=== PATIENT | female | born 1960 | race Caucasian/White ===

== ENCOUNTER → 2017-07-02 | Outpatient (CLI) | payer BC ==
[2014-02-01 16:17] VITALS: BMI 31.8
[~2017-07-02] MED LIST: ACE3 PO; ALB0.5 INH; ALB6.7R INH; AMO500 PO; ASPI-715 PO; ASPI81TA94 PO; ASPRIN PO; AUG875; CARV12.578 PO; CEP250 PO; CHOL500016 PO; CLO30T TOP; CLO75 PO; CLON-392 PO; CLOP75TA PO; CODE118S5 PO; DICL100G39 TOP; FLUC150T40 PO; FURO-45 PO; GAB300 PO; GABA300S PO; HUMALOG SC; HYDR-3078 PO; HYDR-4309 PO; HYDR10TA20 PO; HYDR2TAB4 PO; HYDR50TA35 PO; INSU100C10 SQ; INSU100I SQ; INSU100I18 SQ; INSU100I30 SUBQ; INSU100I34 SQ; INSU100V24 SQ; INSU100V24 SUBQ; INSU100V30 SQ; KETO-58 PO; LANI SC; LANI SQ; LANI SUBQ; LEV500 PO; LISI-349 PO; LISI-362 PO; LISI-374 PO; LISI20TA29 PO; LOR5 PO; MET500 PO; METF-420 PO; METO-222 PO; METO100T20 PO; METO50TA19 PO; METR-1 PO; MORP-181 PO; MORP-46 PO; ONDA4TAB PO; ONDA4TAB9 PO; ONDA8TAB94 PO; OXYC-865 PO; OXYC1TAB54 FT; PER PO; POTT20 PO; PRAS10TA PO; PRAS10TA4 PO; PRAV20TA65 PO; PRAV40TA77 PO; PRE5 PO; PRED-1 PO; PRED20TA6 PO; PROVOCHOL; RANI150C17 PO; ROSU20TA23 PO; SAXA5TAB4 PO; SPIR25TA78 PO; SPIR50TA31 PO; TICA90TA PO; TRA50 PO; TRAM-420 PO; VANC250C PO; [UNRECOGNIZED DRUG - CODE] PO; [UNRECOGNIZED DRUG - CODE] SQ; [UNRECOGNIZED DRUG - CODE] VG
== END ==
LOC: LAB 08:23
PROVIDERS: ATTEND Internal Medicine
DX: E11.9 Type 2 diabetes mellitus without complications (principal); Z79.4 Long term (current) use of insulin; E78.00 Pure hypercholesterolemia, unspecified
CPT/HCPCS: 36415; 82310; 82374; 82435; 82465; 82565; 82947; 83718; 84132; 84295; 84478; 84520

== ENCOUNTER → 2017-07-09 | Outpatient (CLI) | payer BC ==
[2014-02-01 16:17] VITALS: BMI 31.8
== END ==
LOC: LAB 08:01
PROVIDERS: ATTEND Internal Medicine
DX: I10 Essential (primary) hypertension (principal)
CPT/HCPCS: 36415; 82088; 82533; 83970; 84244; 84443

== ENCOUNTER → 2017-07-19 | Outpatient (CLI) | payer BC ==
[2014-02-01 16:17] VITALS: BMI 31.8
== END ==
LOC: LAB 08:20
PROVIDERS: ATTEND Internal Medicine
DX: I51.9 Heart disease, unspecified (principal); I25.10 Atherosclerotic heart disease of native coronary artery without angina pectoris
CPT/HCPCS: 36415; 85027

== ENCOUNTER 2017-07-23 21:29 | Emergency (ER) | payer BC ==
[2014-02-01 16:17] VITALS: Ht 157.5 cm; Wt 72.6 kg
[~2017-07-23] VITALS: Ht 157.5 cm; Wt 72.6 kg
[~2017-07-23 21:29] MED LIST changes: -AMLO-99 PO; -ATOR40TA24 PO; -CARV25TA78 PO; -FURO20TA19 PO; -NITR0.4T3 SL
--- NOTE | 2017-07-23 21:45 | ER Report ---
History and Physical Time Seen By MD: 21:45 Hx. of Stated Complaint: STENTS PLACED WED. 3 TOTAL OF 10. INCREASED PAIN AND NUMB LEFT SHOULDER AND ARM HPI/ROS CHIEF COMPLAINT: chest pain HISTORY OF PRESENT ILLNESS: This is a 57 year old female. She is having chest pain. Has had chest pain since her stents on Wednesday at [facility]. Three stents placed. central left chest pain with radiation to jaw, neck and left arm. Has escalated today. Worsens with exertion. Occasional mild nausea. Feels a little short of breath at times. No cough. No fevers or chills. No abdominal pain. Normal bowel and bladder function. Is taking her Brilinta twice a day and low dose aspirin daily. REVIEW OF SYSTEMS: Constitutional: No weakness. Eyes: No vision changes. ENT: No sore throat. No congestion. Cardiovascular: As above. Respiratory: As above. Gastrointestinal: As above. Genitourinary: No dysuria. No frequency Musculoskeletal: No back pain. Skin: No rashes. Neurological: No numbness. No weakness. Allergies: Coded Allergies: Tetanus Vaccines and Toxoid (Verified Allergy, Severe, ANAPHYLAXIS, 07/23/17 ) barium iodide (Verified Allergy, Intermediate, PROJECTILE VOMITING HIVES, 07/23/17) Home Meds Active Scripts Insulin Lispro (HUMALOG) 100 Unit/Ml Soln, 2-10 UNIT SUBQ SS Y for SLIDING SCALE INSULIN, #2 BOX 4 Refills Prov:ADELITA SANCHEZ MD 04/03/16 Furosemide (FUROSEMIDE) 20 Mg Tablet, 2 TAB PO DAILY, #0 TAB Prov:ADELITA SANCHEZ MD 01/01/16 Reported Medications Furosemide (LASIX) 20 Mg Tablet, 1 TAB PO Q8H, TAB 07/23/17 Nitroglycerin (NITROGLYCERIN) 0.4 Mg Tab.subl, 0.4 MG SL Q5MIN 07/23/17 Amlodipine Besylate (AMLODIPINE BESYLATE) 10 Mg Tablet, 1 TAB PO QDAY, TAB 07/23/17 Carvedilol (CARVEDILOL) 25 Mg Tablet, 25 MG PO BID, #10 TAB 07/23/17 Atorvastatin Calcium (LIPITOR) 40 Mg Tablet, 1 TAB PO QDAY, TAB 07/23/17 Lisinopril (LISINOPRIL) 20 Mg Tablet, 20 MG PO QDAY, TAB 07/23/17 Carvedilol (CARVEDILOL) 25 Mg Tablet, 25 MG PO BID, #10 TAB 07/23/17 Insulin Glargine (LANTUS) 100 Unit/Ml Soln, 44 UNIT SUBQ AM AND PM, ML 06/29/16 Cholecalciferol (Vitamin D3) (VITAMIN D3) 5,000 Unit Capsule, 1 CAP PO DAILY, CAPSULE 12/16/15 Ticagrelor (BRILINTA) 90 Mg Tablet, 1 TAB PO BID 12/11/15 Metformin Hcl (METFORMIN HCL) 1,000 Mg Tablet, 1 TAB PO BID TAKE ONE TABLET BY MOUTH EVERY DAY 01/23/14 Aspirin (ASPIRIN) 81 Mg Tab.chew, 81 MG PO QDAY, TAB.CHEW TAKE 1 TABLET BY MOUTH EVERY DAY 09/27/13 Discontinued Reported Medications Carvedilol (CARVEDILOL) 12.5 Mg Tablet, PO DAILY, #10 TAB 06/29/16 Lisinopril (LISINOPRIL) 40 Mg Tablet, 40 MG PO QDAY, TAB 06/29/16 Spironolactone (SPIRONOLACTONE) 50 Mg Tablet, 1 TAB PO DAILY 12/16/15 Rosuvastatin Calcium (CRESTOR) 20 Mg Tablet, 20 MG PO QDAY 09/27/13 Discontinued Scripts Clonidine Hcl (CATAPRES) 0.1 Mg Tablet, 0.1 MG PO BID Y for HYPERTENSION, #12 TAB Take when blood pressure is greater than 170/95 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 Hypertension, cholesterol, heart failure. Obstructive sleep apnea using sleep apnea with oxygen. Type 2 diabetes. Crohn's disease. Hiatal hernia repair with GERD. Recent stents as noted. Also a surgical history of appendectomy, hysterectomy, thoracic outlet syndrome with first rib removal in the past, tonsillectomy, back surgery. Reviewed Nurses Notes: Yes Hx Smoking: No Smoking Status: Never Smoker Exposure to Second Hand Smoke?: No Hx Substance Use Disorder: No Hx Alcohol Use: No ("none") Constitutional Vital Sign - Last 24 Hours 07/23/17 07/23/17 07/23/17 07/23/17 21:33 21:34 21:44 21:59 Temp 98.5 Pulse 89 82 84 Resp 13 17 21 B/P (MAP) 184/89 (120) 184/89 Pulse Ox 89 94 88 O2 Delivery Room Air 07/23/17 07/23/17 07/23/17 07/23/17 22:00 22:14 22:27 22:29 Pulse 82 82 Resp 18 17 B/P (MAP) 160/85 (110) Pulse Ox 94 94 O2 Flow Rate 3.0 07/23/17 07/23/17 07/23/17 07/23/17 22:30 22:44 22:59 23:00 Pulse 83 78 Resp 23 16 B/P (MAP) 146/82 (103) 154/80 (104) Pulse Ox 93 95 07/23/17 07/23/17 07/23/17 07/23/17 23:14 23:19 23:30 23:49 Pulse 81 80 79 Resp 28 24 15 B/P (MAP) 156/91 (112) Pulse Ox 95 95 96 07/23/17 07/24/17 23:54 00:00 B/P (MAP) 161/94 (116) 169/91 (117) Physical Exam General Appearance: The patient is alert. No acute distress. Eyes: Pupils are equal, round. No pallor, injection or icterus. ENT: Mucous membranes are moist. Normal oral mucosa. Posterior oropharynx is normal. Neck: Supple and non tender. No lymphadenopathy. Respiratory: Breathing easily and unlabored. Lungs are clear to auscultation. Cardiovascular: Regular rate and rhythm. No murmurs, gallops or rubs. Normal capillary refill. No edema. Gastrointestinal: Abdomen is soft and non tender. Nondistended. Normal active bowel sounds. Neurological: Alert and oriented x3. Skin: Warm and dry. DIFFERENTIAL DIAGNOSIS: After history and physical exam, differential diagnosis was considered for chest pain including but not limited to myocardial ischemia, pericarditis pulmonary embolus, chest wall pain, pleural inflammation and pulmonary infectious causes. Medical Decision Making Data Points Result Diagram: 07/23/17215207/23/172152 Laboratory Hematology Test 07/23/17 21:53 Red Blood Count 5.27 M/uL (4.17-5.56) Mean Corpuscular Volume 88.5 fL (80.0-96.0) Mean Corpuscular Hemoglobin 29.9 pg (26.0-33.0) Mean Corpuscular Hemoglobin Concent 33.7 g/dL (32.0-36.0) Red Cell Distribution Width 13.6 % (11.5-14.5) Mean Platelet Volume 10.8 fL (7.2-11.1) Neutrophils (%) (Auto) 56.5 % (39.4-72.5) Lymphocytes (%) (Auto) 32.3 % (17.6-49.6) Monocytes (%) (Auto) 8.0 % (4.1-12.4) Eosinophils (%) (Auto) 2.0 % (0.4-6.7) Basophils (%) (Auto) 1.2 % (0.3-1.4) Nucleated RBC Relative Count (auto) 0.1 /100WBC Neutrophils # (Auto) 4.8 K/uL (2.0-7.4) Lymphocytes # (Auto) 2.7 K/uL (1.3-3.6) Monocytes # (Auto) 0.7 K/uL (0.3-1.0) Eosinophils # (Auto) 0.2 K/uL (0.0-0.5) Basophils # (Auto) 0.1 K/uL (0.0-0.1) Nucleated RBC Absolute Count (auto) 0.00 K/uL D-Dimer Quantitative (PE/DVT) 1.37 ug/ml (0-0.50) Sodium Level 138 mmol/L (137-145) Potassium Level 4.3 mmol/L (3.5-5.0) Chloride Level 100 mmol/L (98-107) Carbon Dioxide Level 25 mmol/L (22-31) Blood Urea Nitrogen 20 mg/dl (7-18) Creatinine 0.80 mg/dl (0.52-1.04) Glomerular Filtration Rate Calc > 60.0 Random Glucose 328 mg/dl (75-110) Calcium Level 8.9 mg/dl (8.4-10.2) Total Bilirubin 0.6 mg/dl (0.2-1.3) Aspartate Amino Transf (AST/SGOT) 31 U/L (0-35) Alanine Aminotransferase (ALT/SGPT) 28 U/L (0-56) Alkaline Phosphatase 98 U/L (0-126) Troponin I 0.264 ng/ml B-Type Natriuretic Peptide 64 pg/ml (0-100) Total Protein 6.8 gm/dl (6.3-8.2) Albumin 3.5 g/dl (3.5-5.0) Chemistry Test 07/23/17 21:53 White Blood Count 8.4 k/uL (4.5-11.0) Red Blood Count 5.27 M/uL (4.17-5.56) Hemoglobin 15.7 g/dL (12.0-16.0) Hematocrit 46.7 % (34.0-47.0) Mean Corpuscular Volume 88.5 fL (80.0-96.0) Mean Corpuscular Hemoglobin 29.9 pg (26.0-33.0) Mean Corpuscular Hemoglobin Concent 33.7 g/dL (32.0-36.0) Red Cell Distribution Width 13.6 % (11.5-14.5) Platelet Count 189 K/uL (150-450) Mean Platelet Volume 10.8 fL (7.2-11.1) Neutrophils (%) (Auto) 56.5 % (39.4-72.5) Lymphocytes (%) (Auto) 32.3 % (17.6-49.6) Monocytes (%) (Auto) 8.0 % (4.1-12.4) Eosinophils (%) (Auto) 2.0 % (0.4-6.7) Basophils (%) (Auto) 1.2 % (0.3-1.4) Nucleated RBC Relative Count (auto) 0.1 /100WBC Neutrophils # (Auto) 4.8 K/uL (2.0-7.4) Lymphocytes # (Auto) 2.7 K/uL (1.3-3.6) Monocytes # (Auto) 0.7 K/uL (0.3-1.0) Eosinophils # (Auto) 0.2 K/uL (0.0-0.5) Basophils # (Auto) 0.1 K/uL (0.0-0.1) Nucleated RBC Absolute Count (auto) 0.00 K/uL D-Dimer Quantitative (PE/DVT) 1.37 ug/ml (0-0.50) Glomerular Filtration Rate Calc > 60.0 Calcium Level 8.9 mg/dl (8.4-10.2) Total Bilirubin 0.6 mg/dl (0.2-1.3) Aspartate Amino Transf (AST/SGOT) 31 U/L (0-35) Alanine Aminotransferase (ALT/SGPT) 28 U/L (0-56) Alkaline Phosphatase 98 U/L (0-126) Troponin I 0.264 ng/ml B-Type Natriuretic Peptide 64 pg/ml (0-100) Total Protein 6.8 gm/dl (6.3-8.2) Albumin 3.5 g/dl (3.5-5.0) Coagulation Test 07/23/17 21:53 D-Dimer Quantitative (PE/DVT) 1.37 ug/ml EKG/Imaging EKG Interpretation 12 lead EKG: Rhythm: normal sinus rhythm, rate 86 Cobb: normal QRS: Q waves in the inferior leads. ST segments: Nonspecific T-wave changes in the lateral and anterior/ septal leads. No ST elevation or depression. Imaging PORTABLE CHEST: Indication: Chest pain. History of cardiac disease. Technique: A single frontal film was obtained. Comparison: 06/29/2016 Skeletal and soft tissue structures: Intact and unchanged. Heart and mediastinum: Stable. Lung hall: Well expanded and clear. No focal opacities. No vascular congestion. Pleural spaces: Unremarkable. Impression: No acute interval change. Report Dictated By: Karan Islas MD at 07/23/2017 10:25 PM ED Course/Re-evaluation Clinical Indication for ER IV: IV Access ED Course After initial evaluation, gave additional aspirin. Suspect unstable angina. Troponin was elevated at 0.264. Mild elevation of D-dimer. Chest x-ray negative. no acute ischemia noted on EKG. Discussed the case with Dr. Pratt at [facility] and will transfer there for further evaluation of unstable angina. Started heparin bolus and drip. Nitro paste applied and morphine given which did help her pain. Decision to Disposition Date: Jul 23, 2017 Decision to Disposition Time: 23:04 Transfer Facility Patient was transferred to [facility] via ambulance. The transfer was non-emergent, and was required because the capabilities of the receiving hospital. Consent for transfer was obtained from the patient. See EMTALA for transfer orders. Depart Departure Latest Vital Signs Vital Signs Date Time Temp Pulse Resp B/P (MAP) Pulse Ox O2 Delivery O2 Flow Rate FiO2 07/24/17 00:00 169/91 (117) 07/23/17 23:49 79 15 96 07/23/17 22:27 3.0 07/23/17 21:34 98.5 Room Air Impression: Primary Impression: Unstable angina Condition: Condition Unchanged Disposition: XFER TO [facility] CARMEN GONSALVES MD Jul 23, 2017 21:45
[2017-07-23] MEDS ORDERED: FURO20TA19 PO (21:49)
[2017-07-23] MEDS ORDERED: AMLO-99 PO (21:49)
[2017-07-23] MEDS ORDERED: ATOR40TA24 PO (21:49)
[2017-07-23] MEDS ORDERED: CARV25TA78 PO (21:49)
[2017-07-23] MEDS ORDERED: NITR0.4T3 SL (21:49)
[2017-07-23] MEDS ORDERED: LISI20TA29 PO (21:49)
[2017-07-23] MEDS ORDERED: ASPIRIN 81 MG CHEW PO ONE (22:00)
--- NOTE | 2017-07-23 22:03 | EKG ---
FACILITY: [facility] [place] PATIENT NAME: DEEJAY KELSEY : [id number] MR: [id number] V: [id number] EXAM DATE: ORDERING PHYSICIAN: CARMEN GONSALVES TECHNOLOGIST: Shabbir Willams Reason : Blood Pressure : / mmHG Vent. Rate : 086 BPM Atrial Rate : 086 BPM P-R Int : 152 ms QRS Dur : 108 ms QT Int : 392 ms P-R-T Axes : 053 028 068 degrees QTc Int : 469 ms Normal sinus rhythm Inferior infarct , age undetermined Abnormal ECG When compared with ECG of 29-JUN-2016 18:07, Inferior infarct is now present Nonspecific T wave abnormality now evident in Lateral leads Confirmed by NICOLETTE KYLE ([id number]) on 07/24/2017 7:45:32 AM Referred By: Confirmed By:NICOLETTE KYLE
[2017-07-23 22:13] LABS: PLATELET COUNT, AUTOMATED 189 K/uL (150-450)
--- NOTE | 2017-07-23 22:31 | RADIOLOGY IMAGING REPORT ---
FACILITY: [facility] PATIENT NAME: Genna Morrell : 1960 MR: [id number] V: [id number] EXAM DATE: ORDERING PHYSICIAN: CARMEN GONSALVES TECHNOLOGIST: Location: [facility] Patient: Genna Morrell : 1960 Visit/Account:[id number] Date of Sevice: 07/23/2017 PORTABLE CHEST: Indication: Chest pain. History of cardiac disease. Technique: A single frontal film was obtained. Comparison: 06/29/2016 Skeletal and soft tissue structures: Intact and unchanged. Heart and mediastinum: Stable. Lung hall: Well expanded and clear. No focal opacities. No vascular congestion. Pleural spaces: Unremarkable. Impression: No acute interval change. Report Dictated By: Karan Islas MD at 07/23/2017 10:25 PM Report E-Signed By: Karan Islas MD at 07/23/2017 10:27 PM WSN:[id number]
[2017-07-23] MEDS ORDERED: ONDANSETRON 4 MG/2 ML VIAL IVP ONE (23:20)
[2017-07-23] MEDS ORDERED: HEPARIN* SOD/D5W 25000 U/500ML 500 ML IV ONE (23:20)
[2017-07-23] MEDS ORDERED: HEPARIN (PORC) 5000 UN/ML VIAL IVP ONE (23:20)
[2017-07-23] MEDS ORDERED: NITROGLYCERIN OINT 1 GM PKT TP ONE (23:20)
[2017-07-23] MEDS ORDERED: MORPHINE 4 MG/ML SDV IVP ONE (23:20)
[2017-07-24] VITALS: BP 169/91
== END 2017-07-24 00:30 | disposition short-term general hospital (02) ==
LOC: ER 21:43
DX: I20.0 Unstable angina (principal); R94.31 Abnormal electrocardiogram [ECG] [EKG]; R06.02 Shortness of breath
CPT/HCPCS: 71045; 83880; 84484; 85025; 85379; 93005; 99285; J1644; J2270; J2405; 82040; 82247; 82310; 82374; 82435; 82565; 82947; 84075; 84132; 84155; 84295; 84450; 84460; 84520

== ENCOUNTER → 2017-07-23 | Outpatient (CLI) | payer BC ==
[2014-02-01 16:17] VITALS: BMI 31.8
[~2017-07-23] MED LIST changes: +AMLO-99 PO; +ATOR40TA24 PO; +CARV25TA78 PO; +FURO20TA19 PO; +NITR0.4T3 SL
== END ==
LOC: AMB 23:57
PROVIDERS: ATTEND Nurse Practitioner
DX: R79.89 Other specified abnormal findings of blood chemistry (principal); E11.9 Type 2 diabetes mellitus without complications; R07.89 Other chest pain; M79.602 Pain in left arm
CPT/HCPCS: A0425; A0426

== ENCOUNTER → 2017-10-07 | Outpatient (REF) | payer BC ==
[2014-02-01 16:17] VITALS: BMI 31.8
[~2017-10-07] MED LIST changes: +AMLO-99 PO; +ATOR40TA24 PO; +CARV25TA78 PO; +FURO20TA19 PO; +NITR0.4T3 SL
[2017-10-07 13:55] LABS: PLATELET COUNT, AUTOMATED 201 K/uL (150-450)
== END ==
PROVIDERS: ATTEND Nurse Practitioner Family
DX: I50.9 Heart failure, unspecified (principal)
CPT/HCPCS: 82040; 82247; 82310; 82374; 82435; 82565; 82947; 83880; 84075; 84132; 84155; 84295; 84450; 84460; 84484; 84520; 85025; 85379

== ENCOUNTER 2017-10-09 11:47 | Emergency (ER) | payer BC ==
[2014-02-01 16:17] VITALS: Wt 75.8 kg
[2017-10-09] MEDS ORDERED: DOXY-181 PO (12:02)
[2017-10-09] MEDS ORDERED: ALB6.7R INH (12:04)
[2017-10-09] MEDS ORDERED: BENZ100C4 PO (12:04)
--- NOTE | 2017-10-09 12:23 | ER Report ---
History and Physical Time Seen By MD: 12:21 Hx. of Stated Complaint: PATIENTS LEFT EYE STATED TO HURT LAST NIGHT; TODAY IT HAS GOTTEN WORSE; PATIENT WENT TO URGENT CARE ON WED. PATIENT STATES THAT SHE WAS DIAGNOSED WITH BRONCHITIS AND PNEUMONIA AND PLACED ON MEDICATIONS HPI/ROS CHIEF COMPLAINT: Left eye pain HISTORY OF PRESENT ILLNESS: 57-year-old female who presents with onset of severe left eye pain last night she reports no eye injury or foreign body sensation. She states that she has blurry vision in the left eye only. She reports increased lacrimation and eye redness of the left eye. Exposure to light increases the pain. She states her eye is tender. She was recently seen urgent care for upper respiratory infection and prescribed doxycycline and Tessalon pearls. REVIEW OF SYSTEMS: Respiratory: +cough, no dyspnea. Cardiovascular: No chest pain, no palpitations. Gastrointestinal: No vomiting, no abdominal pain. Musculoskeletal: No back pain. Allergies: Coded Allergies: Tetanus Vaccines and Toxoid (Verified Allergy, Severe, ANAPHYLAXIS, ) barium iodide (Verified Allergy, Intermediate, PROJECTILE VOMITING HIVES, 10/09/17) Home Meds Active Scripts Prednisone (PREDNISONE) 20 Mg Tablet, 20 MG PO BID for 5 Days, #10 TAB Prov:ANANYA DESIR MD 10/09/17 Insulin Lispro 100 Un/Ml Vial (HUMALOG 100 U/ML VIAL) 100 Unit/Ml Soln, 2-10 UNIT SUBQ SS Y for SLIDING SCALE INSULIN, #2 BOX 4 Refills Prov:ADELITA SANCHEZ MD 04/03/16 Furosemide (FUROSEMIDE) 20 Mg Tablet, 2 TAB PO DAILY, #0 TAB Prov:ADELITA SANCHEZ MD 01/01/16 Reported Medications Benzonatate 100 Mg Cap (TESSALON PERLE 100 MG CAP) 100 Mg Capsule, 100 MG PO TID , #15 CAP 10/09/17 Albuterol Sulfate (PROVENTIL HFA) 6.7 Gm Inh, 1-2 PUFF INH 3-4XD, INH 10/09/17 Doxycycline Hyclate (DOXYCYCLINE HYCLATE) 100 Mg Capsule, 100 MG PO BID, CAPSULE 10/09/17 Furosemide (LASIX) 20 Mg Tablet, 1 TAB PO Q8H, TAB 07/23/17 Nitroglycerin (NITROGLYCERIN) 0.4 Mg Tab.subl, 0.4 MG SL Q5MIN 07/23/17 Amlodipine Besylate (AMLODIPINE BESYLATE) 10 Mg Tablet, 1 TAB PO QDAY, TAB 07/23/17 Carvedilol (CARVEDILOL) 25 Mg Tablet, 25 MG PO BID, #10 TAB 07/23/17 Atorvastatin Calcium (LIPITOR) 40 Mg Tablet, 1 TAB PO QDAY, TAB 07/23/17 Lisinopril (LISINOPRIL) 20 Mg Tablet, 20 MG PO QDAY, TAB 07/23/17 Carvedilol (CARVEDILOL) 25 Mg Tablet, 25 MG PO BID, #10 TAB 07/23/17 Insulin Glargine (LANTUS) 100 Unit/Ml Soln, 44 UNIT SUBQ AM AND PM, ML 06/29/16 Cholecalciferol (Vitamin D3) (VITAMIN D3) 5,000 Unit Capsule, 1 CAP PO DAILY, CAPSULE 12/16/15 Ticagrelor (BRILINTA) 90 Mg Tablet, 1 TAB PO BID 12/11/15 Metformin Hcl (METFORMIN HCL) 1,000 Mg Tablet, 1 TAB PO BID TAKE ONE TABLET BY MOUTH EVERY DAY 01/23/14 Aspirin (ASPIRIN) 81 Mg Tab.chew, 81 MG PO QDAY, TAB.CHEW TAKE 1 TABLET BY MOUTH EVERY DAY 09/27/13 Hx Smoking: No Smoking Status: Never Smoker Exposure to Second Hand Smoke?: No Hx Substance Use Disorder: No Hx Alcohol Use: No ("none") Constitutional Vital Sign - Last 24 Hours 10/09/17 10/09/17 10/09/17 11:51 12:12 14:14 Temp 98.3 98.6 Pulse 86 79 Resp 20 18 B/P (MAP) 158/73 158/101 (120) Pulse Ox 86 96 O2 Delivery Room Air Nasal Cannula O2 Flow Rate 2.0 3 Physical Exam General Appearance: Alert, no distress. Eyes: Pupils equal and round no pallor. Pupils are equal. Right eye is normal. Right eye has severe injection. There is no discharge. Upper lateral eyelid everted, there is no foreign body. Fluorescein exam reveals no uptake. Intraocular pressure of the left eye is 15. Right eye is 12. EOMI intact. Skin: Periorbital skin is not inflamed. DIFFERENTIAL DIAGNOSIS: After history and physical exam differential diagnosis was considered for a red eye including but not limited to foreign body, glaucoma , conjunctivitis, iritis and corneal abrasion. Medical Decision Making ED Course/Re-evaluation ED Course Exam finds no evidence of glaucoma, foreign body, corneal abrasion. Bacterial conjunctivitis appears less likely given no thick discharge or matting. In the setting of what seems to be a viral upper strain infection irritation of the eye a appears more consistent with uveitis or iritis. Patient's pain improved while she was in the ER and she was able to view her cell phone without discomfort. She was prescribed systemic prednisone to help with the irritation as well as her cough. 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 Decision to Disposition Date: Oct 09, 2017 Decision to Disposition Time: 14:03 Depart Departure Latest Vital Signs Vital Signs Date Time Temp Pulse Resp B/P (MAP) Pulse Ox O2 Delivery O2 Flow Rate FiO2 10/09/17 14:14 98.6 79 18 158/101 (120) 96 Nasal Cannula 3 Impression: Primary Impression: Uveitis Condition: Improved Disposition: HOME OR SELF-CARE New Scripts Prednisone (PREDNISONE) 20 Mg Tablet 20 MG PO BID for 5 Days, #10 TAB Prov: ANANYA DESIR MD 10/09/17 Patient Instructions: Eye Pain (ED) Additional Instructions: Take ibuprofen 400-600 milligrams as needed when necessary, do not exceed 2400 mg in a day. Follow-up with your eye doctor on Wednesday. ANANYA DESIR MD Oct 09, 2017 12:23
[2017-10-09] MEDS ORDERED: FLUORESCEIN SOD 1 MG 1 EA STRP OS ONE (12:25)
[2017-10-09] MEDS ORDERED: PROPARACAINE 0.5% OP 15ML BTL OS ONE (12:35)
[2017-10-09] MEDS ORDERED: PRED20TA6 PO (14:05)
[2017-10-09 14:14] VITALS: BP 158/101
== END 2017-10-09 14:14 | disposition home or self-care (01) ==
LOC: ER 12:40
DX: H20.9 Unspecified iridocyclitis (principal)
CPT/HCPCS: 99282

== ENCOUNTER → 2017-10-18 | Outpatient (CLI) | payer BC ==
[2014-02-01 16:17] VITALS: BMI 31.8
[~2017-10-18] MED LIST changes: +BENZ100C4 PO; +DOXY-181 PO
== END ==
LOC: LAB 08:13
PROVIDERS: ATTEND Internal Medicine
DX: E78.00 Pure hypercholesterolemia, unspecified (principal); I25.5 Ischemic cardiomyopathy
CPT/HCPCS: 36415; 82040; 82247; 82310; 82374; 82435; 82465; 82565; 82947; 83718; 84075; 84132; 84155; 84295; 84450; 84460; 84478; 84520

== ENCOUNTER → 2017-11-07 | Outpatient (CLI) | payer BC ==
[2014-02-01 16:17] VITALS: BMI 31.8
[~2017-11-07] MED LIST changes: +METF-421 PO
[2017-11-07 09:14] LABS: PLATELET COUNT, AUTOMATED 168 K/uL (150-450)
[2017-11-07 09:36] LABS: LDL CHOLESTEROL 174 mg/dl
== END ==
LOC: LAB 08:44
PROVIDERS: ATTEND Nurse Practitioner Family
DX: E11.40 Type 2 diabetes mellitus with diabetic neuropathy, unspecified (principal); I10 Essential (primary) hypertension; I25.2 Old myocardial infarction; E78.00 Pure hypercholesterolemia, unspecified; D51.0 Vitamin B12 deficiency anemia due to intrinsic factor deficiency; E55.9 Vitamin D deficiency, unspecified; I50.9 Heart failure, unspecified; R53.81 Other malaise; Z82.49 Family history of ischemic heart disease and other diseases of the circulatory system; Z86.73 Personal history of transient ischemic attack (TIA), and cerebral infarction without residual deficits; Z95.5 Presence of coronary angioplasty implant and graft
CPT/HCPCS: 36415; 82040; 82247; 82306; 82310; 82374; 82435; 82465; 82565; 82607; 82947; 83036; 83718; 84075; 84132; 84155; 84295; 84443; 84450; 84460; 84478; 84520; 85025; 86140

== ENCOUNTER 2018-06-01 09:34 | Outpatient (RCR) | payer BC ==
[2014-02-01 16:17] VITALS: BMI 31.8
[~2018-06-01 09:34] MED LIST changes: +AMLO-127 PO; -AMLO-99 PO; -HYDR-4309 PO; +HYDR-653 PO; -METF-421 PO; +METF-452 PO; +SPIR25TA80 PO; -SPIR50TA31 PO; +SPIR50TA33 PO
--- NOTE | 2018-06-02 14:57 | Medical Nutrition Therapy ---
Nutritional Education Nutrition Education Topic: Diabetic Nutrition Learning Readiness: Interested Teaching Methods: Discussion, Handout, Demonstration Response to Teaching: Verbalize understanding, Reinforcement needed Teaching Recipient: Patient Nutrition Counselin/12: Provided insulin pump training per medtr[employer] protocol. Reviewed basel/bolus and set max rates, basal rate and preset bolus. Pt is not interested in CHO counting at this time. Reviewed what is ISF and how to give correction bolis. Reviewed alarms, what to do when BG high. Synchonized glucometer to pump. Demonstrated filling of reservoir and attached sensor. Pt took BG reading and gave correction dose prior to leaving. Pt left wearing pump and will return for f/u 06/03 @ 10:00 to ensure no issues and make sure pt can demonstrate how to fill reservoir and insert a new sensor. Nutrition Monitoring & Eval Nutritional Comment: Provided 2 hrs diabetic education in insulin pump training and set- up. Copies To Copies to: MANISH AVILA ; NEYMAR BIGGS Jun 02, 2018 14:57
--- NOTE | 2018-06-03 14:15 | Medical Nutrition Therapy ---
Nutritional Education Nutrition Education Topic: Diabetic Nutrition Learning Readiness: Interested Teaching Methods: Discussion, Handout, Demonstration Response to Teaching: Verbalize understanding Teaching Recipient: Patient Nutrition Counselin day f/u: Pt's 2:00 am readings were 143 and 174. Before meals are running 79-101. 2 hr after meals are running 143- 157 with one post meal of 242. Pt stated went out for Prydeinig and ate "a lot" of rice. Pt is on preset bolis for meals based on typical days. discussed improtance of correction bolis when she eats a high CHO meal. Also discussed if she eats a low CHO meal, she may need a smaller dose, at which time, she could do a manual bolis. Pt still had 100u of insulin in reservour. Walked thru the process of filling reservour and changing sensor. Pt will call if she has any issues. Schedulced f/u for 06/07. Nutrition Monitoring & Eval RD Patient Assessment Time: [address] Assessment Type: RD Education Nutritional Comment: Provided 60 min diabetic education in insulin pump training. Copies To Copies to: MANISH AVILA ; NEYMAR BIGGS Jun 03, 2018 14:15
[2018-07-01] MEDS ORDERED: ALB18R INH (10:28)
[2018-07-01] MEDS ORDERED: NOVOLOG SUBQ (10:28)
[2018-07-01] MEDS ORDERED: VALA100059 PO (10:31)
[2018-07-01] MEDS ORDERED: PRED20TA6 PO (10:31)
== END 2018-07-06 ==
LOC: DIET 09:34
PROVIDERS: ATTEND Nurse Practitioner Family
DX: Z46.81 Encounter for fitting and adjustment of insulin pump (principal); E11.9 Type 2 diabetes mellitus without complications

== ENCOUNTER 2018-07-01 08:28 | Emergency (ER) | payer BC ==
[2014-02-01 16:17] VITALS: Wt 75.8 kg
--- NOTE | 2018-07-01 08:32 | ER Report ---
History and Physical Time Seen By MD: 08:32 HPI/ROS CHIEF COMPLAINT: Chest discomfort, left-sided facial numbness, left-sided facial palsy HISTORY OF PRESENT ILLNESS: Patient is a 58-year-old female here with complaints of chest tightness for the last several days, shortness of breath with an SPO2 of 85% on room air. Patient also complains of left-sided facial palsy starting this morning. Patient does report a history of cardiac stent placement, heart failure, sleep apnea. Patient is otherwise hemodynamically stable, afebrile, denies productive cough, fevers or chills. 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 REVIEW OF SYSTEMS: Constitutional: No fever, no chills. Eyes: No discharge, + difficulty closing left eye ENT: No sore throat. Cardiovascular: + mid sternal chest tightness, no palpitations. Respiratory: No cough, + shortness of breath. Gastrointestinal: No abdominal pain, no vomiting. Genitourinary: No hematuria. Musculoskeletal: No back pain. Skin: No rashes. Neurological: + occipital headache, + left sided facial weakness and numbness Allergies: Coded Allergies: Tetanus Vaccines and Toxoid (Verified Allergy, Severe, ANAPHYLAXIS, 10/09/17) barium iodide (Verified Allergy, Intermediate, PROJECTILE VOMITING HIVES, 10/09/17) Home Meds Active Scripts Prednisone (PREDNISONE) 20 Mg Tablet, 20 MG PO QDAY for 6 Days, #18 TAB Prov:TIA HARRIS DO 07/01/18 Valacyclovir Hcl (VALACYCLOVIR) 1,000 Mg Tablet, 1000 MG PO TID for 7 Days, #21 TAB Prov:TIA HARRIS DO 07/01/18 Furosemide (FUROSEMIDE) 20 Mg Tablet, 2 TAB PO DAILY, #0 TAB Prov:ADELITA SANCHEZ MD 01/01/16 Reported Medications Insulin Aspart (NOVOLOG) 100 Unit/Ml Soln, 100 UNIT SUBQ 07/01/18 Albuterol Sulfate (VENTOLIN HFA) 18 Gm Inh, 1-2 PUFF INH 3-4XD, INH 07/01/18 Benzonatate 100 Mg Cap (TESSALON PERLE 100 MG CAP) 100 Mg Capsule, 100 MG PO TID, #15 CAP 10/09/17 Nitroglycerin (NITROGLYCERIN) 0.4 Mg Tab.subl, 0.4 MG SL Q5MIN 07/23/17 Amlodipine Besylate (AMLODIPINE BESYLATE) 10 Mg Tablet, 1 TAB PO QDAY, TAB 07/23/17 Atorvastatin Calcium (LIPITOR) 40 Mg Tablet, 1 TAB PO QDAY, TAB 07/23/17 Lisinopril (LISINOPRIL) 20 Mg Tablet, 20 MG PO QDAY, TAB 07/23/17 Carvedilol (CARVEDILOL) 25 Mg Tablet, 25 MG PO BID, #10 TAB 07/23/17 Cholecalciferol (Vitamin D3) (VITAMIN D3) 5,000 Unit Capsule, 1 CAP PO DAILY, CAPSULE 12/16/15 Ticagrelor (BRILINTA) 90 Mg Tablet, 1 TAB PO BID 12/11/15 Metformin Hcl (METFORMIN HCL) 1,000 Mg Tablet, 1 TAB PO BID TAKE ONE TABLET BY MOUTH EVERY DAY 01/23/14 Aspirin (ASPIRIN) 81 Mg Tab.chew, 81 MG PO QDAY, TAB.CHEW TAKE 1 TABLET BY MOUTH EVERY DAY 09/27/13 Discontinued Reported Medications Albuterol Sulfate (PROVENTIL HFA) 6.7 Gm Inh, 1-2 PUFF INH 3-4XD, INH 10/09/17 Doxycycline Hyclate (DOXYCYCLINE HYCLATE) 100 Mg Capsule, 100 MG PO BID, CAPSULE 10/09/17 Furosemide (LASIX) 20 Mg Tablet, 1 TAB PO Q8H, TAB 07/23/17 Carvedilol (CARVEDILOL) 25 Mg Tablet, 25 MG PO BID, #10 TAB 07/23/17 Insulin Glargine (LANTUS) 100 Unit/Ml Soln, 44 UNIT SUBQ AM AND PM, ML 06/29/16 Discontinued Scripts Prednisone (PREDNISONE) 20 Mg Tablet, 20 MG PO BID for 5 Days, #10 TAB Prov:ANANYA DESIR MD 10/09/17 Insulin Lispro 100 Un/Ml Vial (HUMALOG 100 U/ML VIAL) 100 Unit/Ml Soln, 2-10 UNIT SUBQ SS PRN for SLIDING SCALE INSULIN, #2 BOX 4 Refills Prov:ADELITA SANCHEZ MD 04/03/16 Hx Smoking: No Smoking Status: Never Smoker Exposure to Second Hand Smoke?: No Hx Substance Use Disorder: No Hx Alcohol Use: No ("none") Constitutional Vital Sign - Last 24 Hours 07/01/18 07/01/18 07/01/18 07/01/18 08:28 08:35 08:37 08:38 Temp 98.3 Pulse ??? 82 Resp 18 B/P (MAP) 119/109 (112) 119/109 195/123 (147) Pulse Ox 86 O2 Delivery Room Air 07/01/18 07/01/18 07/01/18 07/01/18 08:43 08:45 08:58 09:00 Pulse 82 79 Resp 17 18 B/P (MAP) 173/114 (133) 170/99 (122) Pulse Ox 94 94 07/01/18 07/01/18 07/01/18 07/01/18 09:12 09:13 09:15 09:28 Pulse ? B/P (MAP) ???/??? (1665) O2 Flow Rate 2.0 07/01/18 07/01/18 07/01/18 07/01/18 09:30 09:40 09:43 09:45 Pulse 84 Resp 18 B/P (MAP) ???/??? (1665) 178/94 (122) 168/94 (118) Pulse Ox 94 07/01/18 07/01/18 07/01/18 07/01/18 10:00 10:13 10:18 10:30 Pulse ? B/P (MAP) 167/103 (124) 139/108 (118) 07/01/18 07/01/18 07/01/18 10:33 10:45 10:48 Pulse 81 87 Resp 29 10 B/P (MAP) 177/168 (171) Pulse Ox 93 93 Physical Exam General Appearance: The patient is alert, has no immediate need for airway protection and no signs of toxicity. NAD Eyes: Pupils equal and round no pallor or injection, + left eyelid weakness ENT, Mouth: Mucous membranes are moist, + left griselda labial droop Respiratory: There are no retractions, lungs are clear to auscultation. Cardiovascular: Regular rate and rhythm. Gastrointestinal: Abdomen is soft and non tender, no masses, bowel sounds normal. Neurological: Left sided facial weakness including forehead distribution of facial musculature, no extremity weakness Skin: Warm and dry, no rashes. Musculoskeletal: Neck is supple non tender. Extremities are nontender, nonswollen and have full range of motion. DIFFERENTIAL DIAGNOSIS: After history and physical exam differential diagnosis was considered for shortness of breath including but not limited to pulmonary infectious process, COPD, asthma, pulmonary embolus and congestive heart failure, Ferrari's palsy, CVA Medical Decision Making Data Points Result Diagram: 07/01/18 0853 07/01/18 0853 Laboratory Hematology Test 07/01/18 08:53 07/01/18 09:20 Red Blood Count 5.47 M/uL (4.17-5.56) Mean Corpuscular Volume 85.7 fL (80.0-96.0) Mean Corpuscular Hemoglobin 28.7 pg (26.0-33.0) Mean Corpuscular Hemoglobin Concent 33.5 g/dL (32.0-36.0) Red Cell Distribution Width 14.0 % (11.5-14.5) Mean Platelet Volume 10.5 fL (7.2-11.1) Neutrophils (%) (Auto) 65.9 % (39.4-72.5) Lymphocytes (%) (Auto) 24.1 % (17.6-49.6) Monocytes (%) (Auto) 6.8 % (4.1-12.4) Eosinophils (%) (Auto) 1.8 % (0.4-6.7) Basophils (%) (Auto) 1.4 % (0.3-1.4) Nucleated RBC Relative Count (auto) 0.0 /100WBC Neutrophils # (Auto) 5.6 K/uL (2.0-7.4) Lymphocytes # (Auto) 2.1 K/uL (1.3-3.6) Monocytes # (Auto) 0.6 K/uL (0.3-1.0) Eosinophils # (Auto) 0.2 K/uL (0.0-0.5) Basophils # (Auto) 0.1 K/uL (0.0-0.1) Nucleated RBC Absolute Count (auto) 0.00 K/uL Prothrombin Time 12.8 seconds (12.0-14.4) Prothromb Time International Ratio 0.97 Activated Partial Thromboplast Time 26 seconds (23-35) D-Dimer Quantitative (PE/DVT) 0.73 ug/ml (0-0.50) Sodium Level 140 mmol/L (137-145) Potassium Level 3.9 mmol/L (3.5-5.0) Chloride Level 104 mmol/L (98-107) Carbon Dioxide Level 27 mmol/L (22-31) Blood Urea Nitrogen 8 mg/dl (7-18) Creatinine 0.50 mg/dl (0.52-1.04) Glomerular Filtration Rate Calc > 60.0 Random Glucose 83 mg/dl (75-110) Calcium Level 8.1 mg/dl (8.4-10.2) Total Bilirubin 0.9 mg/dl (0.2-1.3) Aspartate Amino Transf (AST/SGOT) 22 U/L (0-35) Alanine Aminotransferase (ALT/SGPT) 30 U/L (0-56) Alkaline Phosphatase 84 U/L (0-126) Troponin I 0.012 ng/ml B-Type Natriuretic Peptide 191 pg/ml (0-100) Total Protein 7.0 g/dl (6.3-8.2) Albumin 3.7 g/dl (3.5-5.0) Urine Color Straw Urine Clarity Clear Urine pH 7.0 pH (4.8-9.5) Urine Specific [place] 1.006 Urine Protein Negative mg/dL (NEGATIVE) Urine Glucose (UA) Negative mg/dL (NEGATIVE) Urine Ketones Negative mg/dL (NEGATIVE) Urine Blood Negative (NEGATIVE) Urine Nitrite Negative (NEGATIVE) Urine Bilirubin Negative (NEGATIVE) Urine Urobilinogen Negative mg/dL (0.2-1.9) Urine Leukocyte Esterase Negative (NEGATIVE) Urine RBC None /HPF (0-2/HPF) Urine WBC 1 /HPF (0-5/HPF) Urine Squamous Epithelial Cells Many /LPF (</=FEW) Urine Bacteria Few /HPF (NONE-FEW) Urine Mucus None /HPF (NONE-FEW) Chemistry Test 07/01/18 08:53 07/01/18 09:20 White Blood Count 8.6 k/uL (4.5-11.0) Red Blood Count 5.47 M/uL (4.17-5.56) Hemoglobin 15.7 g/dL (12.0-16.0) Hematocrit 46.9 % (34.0-47.0) Mean Corpuscular Volume 85.7 fL (80.0-96.0) Mean Corpuscular Hemoglobin 28.7 pg (26.0-33.0) Mean Corpuscular Hemoglobin Concent 33.5 g/dL (32.0-36.0) Red Cell Distribution Width 14.0 % (11.5-14.5) Platelet Count 213 K/uL (150-450) Mean Platelet Volume 10.5 fL (7.2-11.1) Neutrophils (%) (Auto) 65.9 % (39.4-72.5) Lymphocytes (%) (Auto) 24.1 % (17.6-49.6) Monocytes (%) (Auto) 6.8 % (4.1-12.4) Eosinophils (%) (Auto) 1.8 % (0.4-6.7) Basophils (%) (Auto) 1.4 % (0.3-1.4) Nucleated RBC Relative Count (auto) 0.0 /100WBC Neutrophils # (Auto) 5.6 K/uL (2.0-7.4) Lymphocytes # (Auto) 2.1 K/uL (1.3-3.6) Monocytes # (Auto) 0.6 K/uL (0.3-1.0) Eosinophils # (Auto) 0.2 K/uL (0.0-0.5) Basophils # (Auto) 0.1 K/uL (0.0-0.1) Nucleated RBC Absolute Count (auto) 0.00 K/uL Prothrombin Time 12.8 seconds (12.0-14.4) Prothromb Time International Ratio 0.97 Activated Partial Thromboplast Time 26 seconds (23-35) D-Dimer Quantitative (PE/DVT) 0.73 ug/ml (0-0.50) Glomerular Filtration Rate Calc > 60.0 Calcium Level 8.1 mg/dl (8.4-10.2) Total Bilirubin 0.9 mg/dl (0.2-1.3) Aspartate Amino Transf (AST/SGOT) 22 U/L (0-35) Alanine Aminotransferase (ALT/SGPT) 30 U/L (0-56) Alkaline Phosphatase 84 U/L (0-126) Troponin I 0.012 ng/ml B-Type Natriuretic Peptide 191 pg/ml (0-100) Total Protein 7.0 g/dl (6.3-8.2) Albumin 3.7 g/dl (3.5-5.0) Urine Color Straw Urine Clarity Clear Urine pH 7.0 pH (4.8-9.5) Urine Specific [place] 1.006 Urine Protein Negative mg/dL (NEGATIVE) Urine Glucose (UA) Negative mg/dL (NEGATIVE) Urine Ketones Negative mg/dL (NEGATIVE) Urine Blood Negative (NEGATIVE) Urine Nitrite Negative (NEGATIVE) Urine Bilirubin Negative (NEGATIVE) Urine Urobilinogen Negative mg/dL (0.2-1.9) Urine Leukocyte Esterase Negative (NEGATIVE) Urine RBC None /HPF (0-2/HPF) Urine WBC 1 /HPF (0-5/HPF) Urine Squamous Epithelial Cells Many /LPF (</=FEW) Urine Bacteria Few /HPF (NONE-FEW) Urine Mucus None /HPF (NONE-FEW) Coagulation Test 07/01/18 08:53 Prothrombin Time 12.8 seconds Prothromb Time International Ratio 0.97 Activated Partial Thromboplast Time 26 seconds D-Dimer Quantitative (PE/DVT) 0.73 ug/ml Urinalysis Test 07/01/18 09:20 Urine Color Straw Urine Clarity Clear Urine pH 7.0 pH (4.8-9.5) Urine Specific [place] 1.006 Urine Protein Negative mg/dL (NEGATIVE) Urine Glucose (UA) Negative mg/dL (NEGATIVE) Urine Ketones Negative mg/dL (NEGATIVE) Urine Blood Negative (NEGATIVE) Urine Nitrite Negative (NEGATIVE) Urine Bilirubin Negative (NEGATIVE) Urine Urobilinogen Negative mg/dL (0.2-1.9) Urine Leukocyte Esterase Negative (NEGATIVE) Urine RBC None /HPF (0-2/HPF) Urine WBC 1 /HPF (0-5/HPF) Urine Squamous Epithelial Cells Many /LPF (</=FEW) Urine Bacteria Few /HPF (NONE-FEW) Urine Mucus None /HPF (NONE-FEW) EKG/Imaging EKG Interpretation 12 lead EKG: Normal sinus rhythm, ventricular rate 81, QTc 504 Rhythm: normal sinus rhythm [place]: normal QRS: normal ST segments: normal Monitor Interpretation: Normal Sinus Rhythm Imaging Location: [facility] - [place] Patient: Genna Morrell : 1960 Visit/Account:[id number] Date of Sevice: 07/01/2018 CT CTA CHEST W & W/O CON HISTORY: d dimer elevated ADDITIONAL HISTORY: None. TECHNIQUE: CTA chest with intravenous contrast attention to pulmonary arteries. Sagittal, coronal and slab 3D MIP coronal reconstructed images were also created for further evaluation and interpretation. One of the following dose optimization techniques was utilized in the performance of this exam: Automated exposure control; adjustment of the mA and/or kV according to the patient's size; or use of an iterative reconstruction technique. Specific details can be referenced in the facility's radiology CT exam operational policy. CONTRAST: 75 mL [id number] IV COMPARISON: None. FINDINGS: Heart/vessels: Cardiomegaly with asymmetric involvement of the left ventricle. Severe atherosclerosis coronary arteries. Main pulmonary artery enlarged suggesting pulmonary hypertension. Pulmonary arterial tree well opacified. No evidence of pulmonary embolism. Mediastinum: Negative. Lymph nodes: No bulky or discrete adenopathy. Lungs/pleura: Focal pleural fatty deposition lateral right apex. Trace right greater than left pleural fluid. No pneumothorax. Assessment of the lungs is limited somewhat by patient respiratory motion and resultant artifact. Allowing for this, patchy bilateral groundglass infiltrate with apical and basilar intralobular septal thickening. Several noncalcified nodular foci within the right lung, likely sites of atelectasis or localized infiltrate but nonspecific. For example, a 12 x 13 mm focus posterior right upper lobe (4/86) and a 4 mm focus posterior right lower lobe (4/178). Asymmetric bronchial wall thickening central right greater than left lung and most pronounced within lower lobes. Visualized upper abdomen: Incompletely visualized sequela of hernia repair. Bones/soft tissues: Disc degenerative changes visualized thoracolumbar spine. Slight midthoracic dextrocurvature. IMPRESSION: 1. Technically adequate exam without evidence of pulmonary embolism. 2. Groundglass intralobular septal and peribronchial infiltrate diffuse and symmetric, nonspecific but most often seen in the setting of edema. 3. Noncalcified right upper and lower lobe pulmonary nodules, the largest measuring 12 x 13 mm. Although these most likely represent sites of confluent infiltrate/edema, 3-month low contrast chest CT follow-up is recommended to reassess. 4. Trace pleural fluid. 5. Cardiomegaly with asymmetric involvement left ventricle. 6. Severe coronary atherosclerosis 7. Central pulmonary enlargement suggesting pulmonary hypertension. Location: [facility] - [place] Patient: Genna Morrell : 1960 Visit/Account:[id number] Date of Sevice: 07/01/2018 Exam type: CHEST PA LAT History: Shortness of breath x2 days Comparison: Separate second 2017. Findings: There is increased density in the right perihilar region extending into the medial right lung base when compared to the prior study. There is a small band of atelectasis in the lateral left lower lobe. The cardiac silhouette is mildly enlarged but unchanged. IMPRESSION: 1. Increased density in the right hilar region extending into the medial right lower lobe. The differential diagnosis would include atelectasis, developing infiltrate or mass lesion. Short-term interval follow-up recommended Left basilar atelectasis PATIENT NAME: Genna Morrell : 1960 MR: [id number] V: [id number] EXAM DATE: [id number] ORDERING PHYSICIAN: TIA HARRIS TECHNOLOGIST: Location: [facility] - [place] Patient: Genna Morrell : 1960 Visit/Account:[id number] Date of Sevice: 07/01/[address] scan without contrast COMPARISONS: None ADDITIONAL PERTINENT HISTORY: Left-sided facial weakness TECHNIQUE: Multiple axial images were obtained from the skull base to the vertex without IV contrast. One of the following dose optimization techniques was utilized in the performance of this exam: Automated exposure control; adjustment of the mA and/or kV according to the patient's size; or use of an iterative reconstruction technique. Specific details can be referenced in the facility's radiology CT exam operational policy. FINDINGS: Midline shift: Negative Ventricles: Negative Brain parenchyma: Negative Extra-axial spaces: Negative Intracranial vasculature: Cavernous internal carotid artery calcifications. Otherwise negative Osseous structures: Negative Paranasal sinuses and mastoid air cells: Minimal mucosal thickening involving both maxillary sinuses. Surrounding soft tissues and orbits: Negative IMPRESSION: 1. Mild age related changes as described above. 2. No evidence of acute intracranial pathology. ED Course/Re-evaluation ED Course Patient is a 58-year-old female here with complaints of left-sided facial numbness, facial weakness with left forehead muscle weakness, chest tightness 3 days, shortness of breath, low oxygen levels 85% on room air. Patient labs were remarkable for an elevated d-dimer, CT PE was completed and was negative for pulmonary embolism but did identify pulmonary edema. Patient was given a dose of Lasix IV for diuresis, she was advised to continue her supplemental oxygen at home in order to maintain oxygen levels greater than 90%. She was given Toradol for treatment of headache. Physical exam was remarkable for moderate weakness in the distribution of the left facial nerve motor innervation including absence of left forehead wrinkling, left orbital muscle weakness, left-sided griselda labial muscle weakness and numbness in the coinciding areas. Symptoms are most consistent with Ferrari's palsy for which the patient was started on prednisone 60 mg seven-day course, valacyclovir 1000 mg 3 times a day seven-day course. Recommend close follow-up with PCP. Return precautions provided. Patient was stable at time of discharge. Decision to Disposition Date: Jul 01, 2018 Decision to Disposition Time: 10:34 Depart Departure Latest Vital Signs Vital Signs Date Time Temp Pulse Resp B/P (MAP) Pulse Ox O2 Delivery O2 Flow Rate FiO2 07/01/18 10:48 87 10 93 07/01/18 10:45 177/168 (171) 07/01/18 09:12 2.0 07/01/18 08:37 98.3 Room Air Impression: Primary Impression: Ferrari's palsy Condition: Improved Disposition: HOME OR SELF-CARE Referrals: MANISH AVILA (PCP) New Scripts Prednisone (PREDNISONE) 20 Mg Tablet 20 MG PO QDAY for 6 Days, #18 TAB Prov: TIA HARRIS DO 07/01/18 Valacyclovir Hcl (VALACYCLOVIR) 1,000 Mg Tablet 1000 MG PO TID for 7 Days, #21 TAB Prov: TIA HARRIS DO 07/01/18 Patient Instructions: Ferrari Palsy (ED) Additional Instructions: Please take prednisone 60 mg daily for the next 6 days starting tomorrow. Please take Valtrex 1000 mg 3 times a day for a total of 7 days. You were diagnosed with Ferrari's palsy. Please consider using an eye patch for sleep if you are unable to close her eye, use eyedrops for moisturization. Please follow-up in 3 days with your primary care provider for follow-up evaluation and care. Please return immediately if you develop worsening symptoms, worsening headache, muscle weakness, weakness in extremities, slurred speech, fevers or chills. You're also found to have pulmonary edema, please see supplemental oxygen to maintain oxygen levels greater than 90%. You're given a dose of intravenous Lasix for diuresis. TIA HARRIS DO Jul 01, 2018 08:32
[2018-07-01] MEDS ORDERED: KETOROLAC 30 MG/ML VIAL IVP ONE (08:40)
[2018-07-01 09:06] LABS: PLATELET COUNT, AUTOMATED 213 K/uL (150-450)
--- NOTE | 2018-07-01 09:06 | EKG ---
FACILITY[place] [facility] [place] PATIENT NAME: DEEJAY KELSEY : [id number] MR: [id number] V: [id number] EXAM DATE: ORDERING PHYSICIAN: TIA HARRIS TECHNOLOGIST: Test Reason : chest discomfort Blood Pressure : / mmHG Vent. 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
[2018-07-01 09:13] LABS: INR 0.97
[2018-07-01] MEDS ORDERED: IOPAMIDOL 76% 75 ML INFUS BTL 75 ML ONE (09:26)
[2018-07-01] MEDS ORDERED: NS(*) 0.9% 50 ML BAG 50 ML ONE (09:26)
--- NOTE | 2018-07-01 09:35 | RADIOLOGY IMAGING REPORT ---
FACILITY: [facility] - [place] PATIENT NAME: Genna Morrell : 1960 MR: [id number] V: [id number] EXAM DATE: ORDERING PHYSICIAN: TIA HARRIS TECHNOLOGIST: [place] [facility] [place] : 1960 Visit/Account:[id number] Date of Sevice: 07/01/[address] scan without contrast COMPARISONS: None ADDITIONAL PERTINENT HISTORY: Left-sided facial weakness TECHNIQUE: Multiple axial images were obtained from the skull base to the vertex without IV contrast . One of the following dose optimization techniques was utilized in the performance of this exam: Aut omated exposure control; adjustment of the mA and/or kV according to the patient's size; or use of an iterative reconstruction technique. Specific details can be referenced in the facility's radiology CT exam operational policy. FINDINGS: Midline shift: Negative Ventricles: Negative Brain parenchyma: Negative Extra-axial spaces: Negative Intracranial vasculature: Cavernous internal carotid artery calcifications. Otherwise negative Osseous structures: Negative Paranasal sinuses and mastoid air cells: Minimal mucosal thickening involving both maxillary sinuses . Surrounding soft tissues and orbits: Negative IMPRESSION: 1. Mild age related changes as described above. 2. No evidence of acute intracranial pathology. Report Dictated By: Terrell Montoya MD at 07/01/2018 9:25 AM Report E-Signed By: Terrell Montoya MD at 07/01/2018 9:30 AM WSN:[id number]
--- NOTE | 2018-07-01 09:49 | RADIOLOGY IMAGING REPORT ---
FACILITY: [facility] PATIENT NAME: Genna Morrell : 1960 MR: [id number] V: [id number] EXAM DATE: ORDERING PHYSICIAN: TIA HARRIS TECHNOLOGIST: [facility] Patient: Genna Morrell : 1960 Visit/Account:[id number] Date of Sevice: 07/01/2018 Exam type: CHEST PA LAT History: Shortness of breath x2 days Comparison: Separate second 2017. Findings: There is increased density in the right perihilar region extending into the medial right lung base wh en compared to the prior study. There is a small band of atelectasis in the lateral left lower lobe. The cardiac silhouette is mildly enlarged but unchanged. IMPRESSION: 1. Increased density in the right hilar region extending into the medial right lower lobe. The diff erential diagnosis would include atelectasis, developing infiltrate or mass lesion. Short-term inter joel follow-up recommended Left basilar atelectasis Report Dictated By: Tana South MD at 07/01/2018 9:42 AM Report E-Signed By: Tana South MD at 07/01/2018 9:44 AM WSN:[email or web address]
--- NOTE | 2018-07-01 10:16 | RADIOLOGY IMAGING REPORT ---
[place] [facility] [place] Genna Morrell : 1960 MR: [id number] V: [id number] EXAM DATE: ORDERING PHYSICIAN: TIA HARRIS TECHNOLOGIST: Location: [facility] - [place] Patient: Genna Morrell : 1960 Visit/Account:[id number] Date of Sevice: 07/01/2018 CT CTA CHEST W & W/O CON HISTORY: d dimer elevated ADDITIONAL HISTORY: None. TECHNIQUE: CTA chest with intravenous contrast attention to pulmonary arteries. Sagittal, coronal a nd slab 3D MIP coronal reconstructed images were also created for further evaluation and interpretati on. One of the following dose optimization techniques was utilized in the performance of this exam: Autom ated exposure control; adjustment of the mA and/or kV according to the patient's size; or use of an i terative reconstruction technique. Specific details can be referenced in the facility's radiology C T exam operational policy. CONTRAST: 75 mL Isovue-370 IV COMPARISON: None. FINDINGS: Heart/vessels: Cardiomegaly with asymmetric involvement of the left ventricle. Severe atheroscleros is coronary arteries. Main pulmonary artery enlarged suggesting pulmonary hypertension. Pulmonary a rterial tree well opacified. No evidence of pulmonary embolism. Mediastinum: Negative. Lymph nodes: No bulky or discrete adenopathy. Lungs/pleura: Focal pleural fatty deposition lateral right apex. Trace right greater than left pleu ral fluid. No pneumothorax. Assessment of the lungs is limited somewhat by patient respiratory ammon on and resultant artifact. Allowing for this, patchy bilateral groundglass infiltrate with apical an d basilar intralobular septal thickening. Several noncalcified nodular foci within the right lung, l ikely sites of atelectasis or localized infiltrate but nonspecific. For example, a 12 x 13 mm focus posterior right upper lobe (4/86) and a 4 mm focus posterior right lower lobe (4/178). Asymmetric br onchial wall thickening central right greater than left lung and most pronounced within lower lobes. Visualized upper abdomen: Incompletely visualized sequela of hernia repair. Bones/soft tissues: Disc degenerative changes visualized thoracolumbar spine. Slight midthoracic de xtrocurvature. IMPRESSION: 1. Technically adequate exam without evidence of pulmonary embolism. 2. Groundglass intralobular septal and peribronchial infiltrate diffuse and symmetric, nonspecific b ut most often seen in the setting of edema. 3. Noncalcified right upper and lower lobe pulmonary nodules, the largest measuring 12 x 13 mm. Alt cesar these most likely represent sites of confluent infiltrate/edema, 3-month low contrast chest CT follow-up is recommended to reassess. 4. Trace pleural fluid. 5. Cardiomegaly with asymmetric involvement left ventricle. 6. Severe coronary atherosclerosis 7. Central pulmonary enlargement suggesting pulmonary hypertension. Report Dictated By: Dominic Waite MD at 07/01/2018 10:01 AM Report E-Signed By: Dominic Waite MD at 07/01/2018 10:12 AM [id number]
[2018-07-01] MEDS ORDERED: predniSONE 20 MG TAB PO ONE (10:25)
[2018-07-01] MEDS ORDERED: FUROSEMIDE 40 MG/4 ML VIAL IVP ONE (10:25)
[2018-07-01] MEDS ORDERED: valACYclovir HCL 500 MG TAB PO ONE (10:25)
[2018-07-01] MEDS ORDERED: ALB18R INH (10:28)
[2018-07-01] MEDS ORDERED: NOVOLOG SUBQ (10:28)
[2018-07-01] MEDS ORDERED: VALA100059 PO (10:31)
[2018-07-01] MEDS ORDERED: PRED20TA6 PO (10:31)
[2018-07-01 10:45] VITALS: BP 177/168
== END 2018-07-01 11:00 | disposition home or self-care (01) ==
LOC: ER 08:36
DX: G51.0 Bell's palsy (principal); J81.1 Chronic pulmonary edema
CPT/HCPCS: 70450; 71046; 71275; 81001; 83880; 84484; 85025; 85379; 85610; 85730; 93005; 96374; 96375; 99285; J1885; J1940; J7050; J7512; Q9967; 82040; 82247; 82310; 82374; 82435; 82565; 82947; 84075; 84132; 84155; 84295; 84450; 84460; 84520

== ENCOUNTER 2018-12-07 15:22 | Inpatient (IN) | payer OTHER, BC ==
[2014-02-01 16:17] VITALS: Ht 157.5 cm; Wt 83.9 kg
[~2018-12-07] VITALS: Ht 157.5 cm; Wt 83.9 kg
[~2018-12-07 15:22] MED LIST changes: +ALB18R INH; +NOVOLOG SUBQ; -ROSU20TA23 PO; +ROSU20TA24 PO; +VALA100059 PO
--- NOTE | 2018-12-07 15:27 | ER Report ---
History and Physical Time Seen By MD: 15:26 HPI/ROS CHIEF COMPLAINT: Fall HISTORY OF PRESENT ILLNESS: This is a 58-year-old female who presents to emergency department for a fall. Patient states that she was at work this morning walking into the restroom, there was some antifreeze on the floor, she slipped and landed flat on her back, hitting the back of her head as well. She denies loss of consciousness. She states that since then she's had thoracic and lumbar discomfort, with abdominal pain and now has diarrhea. No blood noted in the stool. No visual changes. No chest pain or shortness of breath. No bruising or obvious deformities, no bleeding. Patient has a history of multiple abdominal surgeries with significant amount of intra-abdominal mesh, she also states that she has 10 coronary artery stents, she is also on anticoagulation. REVIEW OF SYSTEMS: Constitutional: No fever, no chills. Eyes: No discharge. ENT: No sore throat. Cardiovascular: No chest pain, no palpitations. Respiratory: No cough, no shortness of breath. Gastrointestinal: As above. Genitourinary: No hematuria. Musculoskeletal: As above. Skin: No rashes. Neurological: As above. Allergies: Coded Allergies: Tetanus Vaccines and Toxoid (Verified Allergy, Severe, ANAPHYLAXIS, 10/09/17) barium iodide (Verified Allergy, Intermediate, PROJECTILE VOMITING HIVES, 10/09/17) Home Meds Active Scripts Furosemide (FUROSEMIDE) 20 Mg Tablet, 2 TAB PO DAILY, #0 TAB Prov:ADELITA SANCHEZ MD 01/01/16 Reported Medications Insulin Aspart (NOVOLOG) 100 Unit/Ml Soln, 100 UNIT SUBQ 07/01/18 Albuterol Sulfate (VENTOLIN HFA) 18 Gm Inh, 1-2 PUFF INH 3-4XD, INH 07/01/18 Nitroglycerin (NITROGLYCERIN) 0.4 Mg Tab.subl, 0.4 MG SL Q5MIN 07/23/17 Amlodipine Besylate (AMLODIPINE BESYLATE) 10 Mg Tablet, 1 TAB PO QDAY, TAB 07/23/17 Atorvastatin Calcium (LIPITOR) 40 Mg Tablet, 1 TAB PO QDAY, TAB 07/23/17 Lisinopril (LISINOPRIL) 20 Mg Tablet, 20 MG PO QDAY, TAB 07/23/17 Cholecalciferol (Vitamin D3) (VITAMIN D3) 5,000 Unit Capsule, 1 CAP PO DAILY, CAPSULE 12/16/15 Ticagrelor (BRILINTA) 90 Mg Tablet, 1 TAB PO BID 12/11/15 Metformin Hcl (METFORMIN HCL) 1,000 Mg Tablet, 1 TAB PO BID TAKE ONE TABLET BY MOUTH EVERY DAY 01/23/14 Aspirin (ASPIRIN) 81 Mg Tab.chew, 81 MG PO QDAY, TAB.CHEW TAKE 1 TABLET BY MOUTH EVERY DAY 09/27/13 Discontinued Reported Medications Benzonatate 100 Mg Cap (TESSALON PERLE 100 MG CAP) 100 Mg Capsule, 100 MG PO TID, #15 CAP 10/09/17 Carvedilol (CARVEDILOL) 25 Mg Tablet, 25 MG PO BID, #10 TAB 07/23/17 Discontinued Scripts Prednisone (PREDNISONE) 20 Mg Tablet, 20 MG PO QDAY for 6 Days, #18 TAB Prov:TIA HARRIS DO 07/01/18 Valacyclovir Hcl (VALACYCLOVIR) 1,000 Mg Tablet, 1000 MG PO TID for 7 Days, #21 TAB Prov:TIA HARRIS S DO 07/01/18 Past Medical/Surgical History The patient has a past medical and surgical history of CHF, coronary artery disease, hypertension, 10 coronary artery stents, 3 heart attacks, angina, hypertension, hypercholesterolemia, sleep apnea, uses CPAP, asthma, pneumonia, diverticulitis, GERD, colon resection, hiatal hernia repair 6, at least infections, menopause, poor eyesight secondary to type II diabetes, Crohn's disease, hysterectomy, 1st rib removed secondary to thoracic outlet syndrome, back surgery, tonsillectomy. Reviewed Nurses Notes: Yes Hx Smoking: No Smoking Status: Never Smoker Exposure to Second Hand Smoke?: No Hx Substance Use Disorder: No Hx Alcohol Use: No ("none") Constitutional Vital Sign - Last 24 Hours 12/07/18 12/07/18 12/07/18 12/07/18 15:22 15:27 15:28 15:30 Temp 99.0 Pulse ??? 90 Resp 20 B/P (MAP) 168/97 (120) 168/97 162/97 (118) Pulse Ox 92 O2 Delivery Room Air 12/07/18 12/07/18 12/07/18 12/07/18 15:52 16:00 16:22 16:30 Pulse 91 78 B/P (MAP) 163/70 (101) 140/79 (99) Pulse Ox 91 93 12/07/18 12/07/18 12/07/18 12/07/18 16:35 17:00 17:05 17:35 Pulse 83 82 ??? B/P (MAP) 162/81 (108) Pulse Ox 91 96 12/07/18 12/07/18 12/07/18 12/07/18 18:00 18:05 18:30 18:35 Pulse 77 75 B/P (MAP) 167/84 (111) 149/85 (106) Pulse Ox 97 94 12/07/18 12/07/18 12/07/18 12/07/18 18:40 18:55 19:00 19:10 Pulse 73 72 B/P (MAP) 151/77 (101) Pulse Ox 96 94 94 12/07/18 12/07/18 12/07/18 12/07/18 19:25 19:30 19:40 19:55 Pulse 69 78 B/P (MAP) 164/77 (106) Pulse Ox 90 97 97 12/07/18 12/07/18 20:00 20:05 Pulse 74 B/P (MAP) 161/121 (134) Pulse Ox 95 Physical Exam General Appearance: The patient is alert, has no immediate need for airway protection and no signs of toxicity. Eyes: 3mm Pupils, equal and round no pallor or injection. EOMs intact. ENT, Mouth: Mucous membranes are dry. Respiratory: There are no retractions, lungs are clear to auscultation. Cardiovascular: Regular rate and rhythm. No murmurs, clicks or rubs. Gastrointestinal: Abdomen is round, soft with generalized abdominal tenderness, increased discomfort to the epigastrium, no masses, hyperactive bowel sounds. Neurological: Alert and oriented 4. Moving all extremities. Following all commands. No focal neurodeficits. Skin: Warm and dry, no rashes. No bruising. Musculoskeletal: Neck is supple non tender. Thoracic, lumbar and sacral disc omfort with palpation. No crepitus or obvious deformities. Mild bilateral hip discomfort, no deformities or crepitus. Extremities are nontender, nonswollen and have full range of motion. DIFFERENTIAL DIAGNOSIS: After history and physical exam differential diagnosis was considered for contusion, intracranial bleed, fracture, subluxation acute GI bleed, disruption of medical hardware. Medical Decision Making Data Points Result Diagram: 12/07/18 1558 12/07/18 1558 Laboratory Hematology Test 12/07/18 15:58 12/07/18 20:05 Red Blood Count 6.18 M/uL (4.17-5.56) Mean Corpuscular Volume 84.9 fL (80.0-96.0) Mean Corpuscular Hemoglobin 28.8 pg (26.0-33.0) Mean Corpuscular Hemoglobin Concent 33.9 g/dL (32.0-36.0) Red Cell Distribution Width 14.3 % (11.5-14.5) Mean Platelet Volume 10.6 fL (7.2-11.1) Neutrophils (%) (Auto) 75.8 % (39.4-72.5) Lymphocytes (%) (Auto) 17.3 % (17.6-49.6) Monocytes (%) (Auto) 5.6 % (4.1-12.4) Eosinophils (%) (Auto) 0.5 % (0.4-6.7) Basophils (%) (Auto) 0.8 % (0.3-1.4) Nucleated RBC Relative Count (auto) 0.1 /100WBC Neutrophils # (Auto) 9.1 K/uL (2.0-7.4) Lymphocytes # (Auto) 2.1 K/uL (1.3-3.6) Monocytes # (Auto) 0.7 K/uL (0.3-1.0) Eosinophils # (Auto) 0.1 K/uL (0.0-0.5) Basophils # (Auto) 0.1 K/uL (0.0-0.1) Nucleated RBC Absolute Count (auto) 0.01 K/uL Sodium Level 142 mmol/L (137-145) Potassium Level 3.9 mmol/L (3.5-5.0) Chloride Level 108 mmol/L (98-107) Carbon Dioxide Level 23 mmol/L (22-31) Blood Urea Nitrogen 18 mg/dl (7-18) Creatinine 0.60 mg/dl (0.52-1.04) Glomerular Filtration Rate Calc > 60.0 Random Glucose 72 mg/dl (75-110) Calcium Level 9.0 mg/dl (8.4-10.2) Total Bilirubin 0.9 mg/dl (0.2-1.3) Aspartate Amino Transf (AST/SGOT) 30 U/L (0-35) Alanine Aminotransferase (ALT/SGPT) 47 U/L (0-56) Alkaline Phosphatase 107 U/L (0-126) Total Protein 6.8 g/dl (6.3-8.2) Albumin 3.7 g/dl (3.5-5.0) Lactate 1.0 mmol/L (0.7-2.1) Chemistry Test 12/07/18 15:58 12/07/18 20:05 White Blood Count 12.0 k/uL (4.5-11.0) Red Blood Count 6.18 M/uL (4.17-5.56) Hemoglobin 17.8 g/dL (12.0-16.0) Hematocrit 52.4 % (34.0-47.0) Mean Corpuscular Volume 84.9 fL (80.0-96.0) Mean Corpuscular Hemoglobin 28.8 pg (26.0-33.0) Mean Corpuscular Hemoglobin Concent 33.9 g/dL (32.0-36.0) Red Cell Distribution Width 14.3 % (11.5-14.5) Platelet Count 230 K/uL (150-450) Mean Platelet Volume 10.6 fL (7.2-11.1) Neutrophils (%) (Auto) 75.8 % (39.4-72.5) Lymphocytes (%) (Auto) 17.3 % (17.6-49.6) Monocytes (%) (Auto) 5.6 % (4.1-12.4) Eosinophils (%) (Auto) 0.5 % (0.4-6.7) Basophils (%) (Auto) 0.8 % (0.3-1.4) Nucleated RBC Relative Count (auto) 0.1 /100WBC Neutrophils # (Auto) 9.1 K/uL (2.0-7.4) Lymphocytes # (Auto) 2.1 K/uL (1.3-3.6) Monocytes # (Auto) 0.7 K/uL (0.3-1.0) Eosinophils # (Auto) 0.1 K/uL (0.0-0.5) Basophils # (Auto) 0.1 K/uL (0.0-0.1) Nucleated RBC Absolute Count (auto) 0.01 K/uL Glomerular Filtration Rate Calc > 60.0 Calcium Level 9.0 mg/dl (8.4-10.2) Total Bilirubin 0.9 mg/dl (0.2-1.3) Aspartate Amino Transf (AST/SGOT) 30 U/L (0-35) Alanine Aminotransferase (ALT/SGPT) 47 U/L (0-56) Alkaline Phosphatase 107 U/L (0-126) Total Protein 6.8 g/dl (6.3-8.2) Albumin 3.7 g/dl (3.5-5.0) Lactate 1.0 mmol/L (0.7-2.1) EKG/Imaging Imaging PATIENT NAME: Genna Morrell : 1960 MR: [id number] V: [id number] EXAM DATE: ORDERING PHYSICIAN: ALLISON OSBORN TECHNOLOGIST: [place] [facility] [place]: Genna Morrell : 1960 Visit/Account:[id number] Date of Sevice: 12/07/2018 CT Head without contrast and CT Cervical spine: Indication: Fall. Back and neck pain. Hit head. Comparison: 07/01/2018. Technique: CT head: Axial CT images were obtained through the brain from the skull base to the vertex without administration of IV contrast. Reformatted coronal and sagittal images were also obtained. Technique: CT cervical spine: Axial CT imaging of the cervical spine was performed. 2-D sagittal and coronal CT reformats were also obtained. One of the following dose optimization techniques was utilized in the perform ance of this exam: Automated exposure control; adjustment of the mA and/or kV according to the patient's size; or use of an iterative reconstruction technique. Specific details can be referenced in the facility's radiology CT exam operational policy. FINDINGS: CT head: No intracranial bleed, midline shift, mass effect, extra-axial fluid collection or hydrocephalus. No abnormal density. Vo/white matter differentiation appears normal. Mild bilateral internal carotid artery calcifications. The bony structures show no fractures or lesions. Mild rightward deviation nasal septum. Sinuses and mastoids visualized are clear. CT cervical spine: The vertebral bodies are aligned. No fracture or facet dislocation. No aggressive bony lesions. There is diffuse degenerative changes which are mostly and moderately in the lower cervical spine. These include disc space narrowing, endplate changes, osteophytes and facet arthropathy. No bony canal stenosis. Multilevel neural foramina narrowing. Endplates are maintained. No obvious disc herniation. Prevertebral soft tissues and surrounding soft tissues are unremarkable. Lung apices are clear. IMPRESSION: 1. No acute intracranial abnormality. 2. No acute osseous or acute alignment abnormality of the cervical spine. Degenerative changes. Report Dictated By: Gunner Velazquez at 12/07/2018 6:05 PM Report E-Signed By: Gunner Velazquez at 12/07/2018 6:14 PM WSN:[id number] PATIENT NAME: Genna Morrell : 1960 MR: [id number] V: [id number] EXAM DATE: [id number] ORDERING PHYSICIAN: ALLISON OSBORN TECHNOLOGIST: [place] [facility] [place] Patient: Genna Morrell : 1960 Visit/Account:[id number] Date of Sevice: 12/07/2018 EXAMINATION: CT chest with IV contrast CT abdomen with IV contrast CT pelvis with IV contrast HISTORY: Back pain after fall. TECHNIQUE: Spiral scan was obtained through the chest, abdomen and pelvis during injection of nonionic iodinated intravenous contrast. Sagittal and coronal reformatted images are also submitted. One of the following dose optimization techniques was utilized in the performance of this exam: Automated exposure control; adjustment of the mA and/or kV according to the patient's size; or use of an iterative reconstruction technique. Specific details can be referenced in the facility's radiology CT exam operational policy. CONTRAST: 75 mL of IV Isovue-370. COMPARISON: CTA chest 07/01/2018. CT abdomen and pelvis 09/27/2013. FINDINGS: CT THORAX: Lungs / pleura: No consolidation, pleural effusion or pneumothorax. There is a stable pleural-based nodule in the right posterior lower lobe measuring 5 mm. No new nodules. No focal interstitial opacities. Airways are clear. Mediastinum / sera: No enlarged lymph nodes or abnormal density. Heart / pericardium: Heart is normal size without pericardial effusion. Coronary artery calcifications. Vessels: The aorta shows no aneurysm or dissection. The pulmonary arteries are grossly normal without discrete thrombus. Musculoskeletal / Body wall: Bony structures show no acute fractures. The vertebral bodies show no compressions. Degenerative change seen spine. Sternum appears intact. No discrete or displaced rib fractures. No aggressive bony lesions. The chest wall shows no enlarged axillary lymph nodes or masses. CT ABDOMEN AND PELVIS: Liver / biliary: Liver shows no focal normality. Status post cholecystectomy. Biliary system is unremarkable. Pancreas: No focal abnormality. Spleen: No focal abnormality or perisplenic fluid. Adrenal glands: Negative. Kidneys: Negative. Pelvic structures: Negative. Bowel: Abnormal small bowel in the right mid to lower abdomen with increased wall enhancement and wall thickening. No focal abnormality. Mesenteric edema and fluid is present. The left small bowel shows a normal appearance. The colon shows a few diverticula and sigmoid region without pericolonic inflammat ion. Sutures seen along the proximal sigmoid colon without focal abnormality. The remaining colon shows no focal abnormality. The appendix is not definitely visualized. The stomach is unremarkable. Peritoneum / retroperitoneum / mesenteries: No fluid collections, free air or focal areas of inflammation. Previous anterior hernia repair. No appreciable recurrent hernia. Vessels: Mild atherosclerotic calcific changes without aneurysm. Musculoskeletal / Body wall: No acute fracture. The vertebral bodies show no compressions. Mild degenerative change seen spine. Bone island in the L3 v ertebral body. Lymph node assessment: Negative. IMPRESSION: 1. Spine shows no acute abnormality. 2. Chest shows no acute abnormality or indication of thoracic trauma. 3. The small bowel in the right abdomen to the mid to lower aspect does show abnormal appearance consistent with nonspecific enteritis with mesenteric edema and free fluid. This is nonspecific and could be due to infectious or inflammatory process. Ischemic process is less likely as the vessels all appear to be well opacified without indication of filling defect. 4. Other chronic stable findings as above. I called report to ALLISON OSBORN at 12/07/2018 6:35 PM. Report Dictated By: Gunner Velazquez at 12/07/2018 6:14 PM Report E-Signed By: Gunner Velazquez at 12/07/2018 6:38 PM WSN:[id number] ED Course/Re-evaluation Clinical Indication for ER IV: Hydration, IV Access ED Course The patient was admitted to room. A history and physical were obtained. Differen tial diagnoses were considered. An IV was started. A CBC, CMP were obtained. A 1 L normal saline bolus was given. CBC showing white count of 12, H&H 17.8 and 52.4. Given the nature of the patient's fall and her comorbidities and currently taking anticoagulation I discussed this with patient, I recommended a CT of the chest abdomen pelvis, head and C-spine. Head and C-spine CTs were negative. Thoracic and lumbar CT negative.CT of the abdomen and pelvis showing small bowel in the right abdomen with an abnormal appearance however not specific with some mesenteric edema and free fluid. Could be infectious or inflammatory process. However the patient states that's she began having the abdominal pain and diarrhea after her fall this morning, I am concerned that this could indicate a small bleed. I did review the results with the patient, I also spoke with Dr. Osman, the surgeon on-call he was able to evaluate the patient while in the emergency department, the patient was ultimately admitted to the medical floor for observation, the patient's insulin pump was removed. 12/07/2018 7:25:46 pm I did speak with Dr. Osman regarding the patient's case, we did review the CT results, as a patient does have diffuse abdominal pain he will come and evaluate her which time we can formulate a plan to either send her home or admit for observation. The patient is aware. 12/07/2018 7:52:[address] Leon is here to evaluate the patient. 12/07/2018 8:00:[address] Leon admitting patient to the medical floor for fall and small bowel contusion. Decision to Disposition Date: Dec 07, 2018 Decision to Disposition Time: 20:00 Depart Departure Latest Vital Signs Vital Signs Date Time Temp Pulse Resp B/P (MAP) Pulse Ox O2 Delivery O2 Flow Rate FiO2 12/07/18 20:05 74 95 12/07/18 20:00 161/121 (134) 12/07/18 15:28 99.0 20 Room Air Impression: Primary Impression: Contusion of small intestine Additional Impression: Fall Condition: Improved Disposition: Admitted from ER Referrals: MANISH AVILA (PCP) Problem Qualifiers Primary Impression: Contusion of small intestine Encounter type: initial encounter Qualified Codes: S36.429A - Contusion of unspecified part of small intestine, initial encounter Additional Impression: Fall Encounter type: initial encounter Qualified Codes: W19.XXXA - Unspecified fall, initial encounter ALLISON OSBORN [employer]ING UTILITY WORKER- Dec 07, 2018 15:27
[2018-12-07] MEDS ORDERED: NS(*) 0.9% 1000 ML BAG 1,000 ML IV ONE (15:50)
[2018-12-07 16:15] LABS: PLATELET COUNT, AUTOMATED 230 K/uL (150-450)
[2018-12-07] MEDS ORDERED: IOPAMIDOL 76% 100 ML INFUS BTL 100 ML ONE (16:15)
[2018-12-07] MEDS ORDERED: MORPHINE 4 MG/ML SDV IVP ONE (17:40)
--- NOTE | 2018-12-07 18:19 | RADIOLOGY IMAGING REPORT ---
FACILITY: [facility] PATIENT NAME: Genna Morrell : 1960 MR: [id number] V: [id number] EXAM DATE: ORDERING PHYSICIAN: ALLISON OSBORN TECHNOLOGIST: Location: [facility] - [place] Patient: Genna Morrell : 1960 Visit/Account:[id number] Date of Sevice: 12/07/2018 CT Head without contrast and CT Cervical spine: Indication: Fall. Back and neck pain. Hit head. Comparison: 07/01/2018. Technique: CT head: Axial CT images were obtained through the brain from the skull base to the verte x without administration of IV contrast. Reformatted coronal and sagittal images were also obtained. Technique: CT cervical spine: Axial CT imaging of the cervical spine was performed. 2-D sagittal and coronal CT reformats were also obtained. One of the following dose optimization techniques was utilized in the performance of this exam: Autom ated exposure control; adjustment of the mA and/or kV according to the patient's size; or use of an i terative reconstruction technique. Specific details can be referenced in the facility's radiology C T exam operational policy. FINDINGS: CT head: No intracranial bleed, midline shift, mass effect, extra-axial fluid collection or hydrocephalus. No abnormal density. Vo/white matter differentiation appears normal. Mild bilateral internal caroti d artery calcifications. The bony structures show no fractures or lesions. Mild rightward deviation nasal septum. Sinuses and mastoids visualized are clear. CT cervical spine: The vertebral bodies are aligned. No fracture or facet dislocation. No aggressive bony lesions. Th ere is diffuse degenerative changes which are mostly and moderately in the lower cervical spine. The se include disc space narrowing, endplate changes, osteophytes and facet arthropathy. No bony canal stenosis. Multilevel neural foramina narrowing. Endplates are maintained. No obvious disc herniati on. Prevertebral soft tissues and surrounding soft tissues are unremarkable. Lung apices are clear. IMPRESSION: 1. No acute intracranial abnormality. 2. No acute osseous or acute alignment abnormality of the cervical spine. Degenerative changes. Report Dictated By: Gunner Velazquez at 12/07/2018 6:05 PM Report E-Signed By: Gunner Velazquez at 12/07/2018 6:14 PM WSN:[id number]
--- NOTE | 2018-12-07 18:19 | RADIOLOGY IMAGING REPORT ---
FACILITY: [facility] PATIENT NAME: Genna Morrell : 1960 MR: [id number] V: [id number] EXAM DATE: ORDERING PHYSICIAN: ALLISON OSBORN TECHNOLOGIST: Location: [facility] [place] Patient: Genna Morrell : 1960 Visit/Account:[id number] Date of Sevice: 12/07/2018 CT Head without contrast and CT Cervical spine: Indication: Fall. Back and neck pain. Hit head. Comparison: 07/01/2018. Technique: CT head: Axial CT images were obtained through the brain from the skull base to the verte x without administration of IV contrast. Reformatted coronal and sagittal images were also obtained. Technique: CT cervical spine: Axial CT imaging of the cervical spine was performed. 2-D sagittal and coronal CT reformats were also obtained. One of the following dose optimization techniques was utilized in the performance of this exam: Autom ated exposure control; adjustment of the mA and/or kV according to the patient's size; or use of an i terative reconstruction technique. Specific details can be referenced in the facility's radiology C T exam operational policy. FINDINGS: CT head: No intracranial bleed, midline shift, mass effect, extra-axial fluid collection or hydrocephalus. No abnormal density. Vo/white matter differentiation appears normal. Mild bilateral internal caroti d artery calcifications. The bony structures show no fractures or lesions. Mild rightward deviation nasal septum. Sinuses and mastoids visualized are clear. CT cervical spine: The vertebral bodies are aligned. No fracture or facet dislocation. No aggressive bony lesions. Th ere is diffuse degenerative changes which are mostly and moderately in the lower cervical spine. The se include disc space narrowing, endplate changes, osteophytes and facet arthropathy. No bony canal stenosis. Multilevel neural foramina narrowing. Endplates are maintained. No obvious disc herniati on. Prevertebral soft tissues and surrounding soft tissues are unremarkable. Lung apices are clear. IMPRESSION: 1. No acute intracranial abnormality. 2. No acute osseous or acute alignment abnormality of the cervical spine. Degenerative changes. Report Dictated By: Gunner Velazquez at 12/07/2018 6:05 PM Report E-Signed By: Gunner Velazquez at 12/07/2018 6:14 PM WSN:[email or web address]
--- NOTE | 2018-12-07 18:43 | RADIOLOGY IMAGING REPORT ---
[place] [facility] [place] Genna Morrell : 1960 MR: [id number] V: [id number] EXAM DATE: ORDERING PHYSICIAN: ALLISON OSBORN TECHNOLOGIST: Location: [facility] Patient: Genna Morrell : 1960 Visit/Account:[id number] Date of Sevice: 12/07/2018 EXAMINATION: CT chest with IV contrast CT abdomen with IV contrast CT pelvis with IV contrast HISTORY: Back pain after fall. TECHNIQUE: Spiral scan was obtained through the chest, abdomen and pelvis during injection of nonio liliya iodinated intravenous contrast. Sagittal and coronal reformatted images are also submitted. One of the following dose optimization techniques was utilized in the performance of this exam: Autom ated exposure control; adjustment of the mA and/or kV according to the patient's size; or use of an i terative reconstruction technique. Specific details can be referenced in the facility's radiology C T exam operational policy. CONTRAST: 75 mL of IV [id number]. COMPARISON: CTA chest 07/01/2018. CT abdomen and pelvis 09/27/2013. FINDINGS: CT THORAX: Lungs / pleura: No consolidation, pleural effusion or pneumothorax. There is a stable pleural-based nodule in the right posterior lower lobe measuring 5 mm. No new nodules. No focal interstitial opa cities. Airways are clear. Mediastinum / sera: No enlarged lymph nodes or abnormal density. Heart / pericardium: Heart is normal size without pericardial effusion. Coronary artery calcificati ons. Vessels: The aorta shows no aneurysm or dissection. The pulmonary arteries are grossly normal witho ut discrete thrombus. Musculoskeletal / Body wall: Bony structures show no acute fractures. The vertebral bodies show no compressions. Degenerative change seen spine. Sternum appears intact. No discrete or displaced rib fractures. No aggressive bony lesions. The chest wall shows no enlarged axillary lymph nodes or ma sses. CT ABDOMEN AND PELVIS: Liver / biliary: Liver shows no focal normality. Status post cholecystectomy. Biliary system is unr emarkable. Pancreas: No focal abnormality. Spleen: No focal abnormality or perisplenic fluid. Adrenal glands: Negative. Kidneys: Negative. Pelvic structures: Negative. Bowel: Abnormal small bowel in the right mid to lower abdomen with increased wall enhancement and wal l thickening. No focal abnormality. Mesenteric edema and fluid is present. The left small bowel sh ows a normal appearance. The colon shows a few diverticula and sigmoid region without pericolonic in flammation. Sutures seen along the proximal sigmoid colon without focal abnormality. The remaining colon shows no focal abnormality. The appendix is not definitely visualized. The stomach is unremar kable. Peritoneum / retroperitoneum / mesenteries: No fluid collections, free air or focal areas of inflamma tion. Previous anterior hernia repair. No appreciable recurrent hernia. Vessels: Mild atherosclerotic calcific changes without aneurysm. Musculoskeletal / Body wall: No acute fracture. The vertebral bodies show no compressions. Mild deg enerative change seen spine. Bone island in the L3 vertebral body. Lymph node assessment: Negative. IMPRESSION: 1. Spine shows no acute abnormality. 2. Chest shows no acute abnormality or indication of thoracic trauma. 3. The small bowel in the right abdomen to the mid to lower aspect does show abnormal appearance con sistent with nonspecific enteritis with mesenteric edema and free fluid. This is nonspecific and cou ld be due to infectious or inflammatory process. Ischemic process is less likely as the vessels all appear to be well opacified without indication of filling defect. 4. Other chronic stable findings as above. I called report to ALLISON OSBORN at 12/07/2018 6:35 PM. Report Dictated By: Gunner Velazquez at 12/07/2018 6:14 PM Report E-Signed By: Gunner Velazquez at 12/07/2018 6:38 PM WSN:[email or web address]
[2018-12-07] MEDS ORDERED: HYDROmorphone HCL 2 MG/ML SDV IVP PRN ×2 (20:00→21:55)
[2018-12-07] MEDS ORDERED: NALOXONE HCL 0.4 MG/ML VIAL IVP PRN (20:00)
[2018-12-07] MEDS ORDERED: FLUSH 10 ML SYR IVP PRN (20:00)
--- NOTE | 2018-12-07 20:19 | Gen Surgery History & Physical ---
History of Present Illness Chief Complaint S/P fall History of Present Illness 58-year-old female is brought into the emergency room after having fallen this morning. She fell about a hours ago. She went to work as usual and was walking down the lanza and apparently there was antifreeze on the floor that she did not notice and she slipped on it and fell straight down on her back. She then began experiencing abdominal pain and she's had loose stools through the day. Prior to that she was feeling pretty normal without abdominal pain or diarrhea. No nausea or vomiting. No fevers or chills. She presented to the emergency room where workup revealed diffuse right-sided small bowel wall thickening and adjacent mesenteric edema with a small amount of adjacent free fluid but no free air. I was consulted to evaluate and provide recommendations for this patient. She remembers the entire event. She did hit the back of her head on the floor but had no loss of consciousness and no amnesia. She has no other complaints today History Problems: (1) Hypertension Status: Chronic (2) Hypercholesteremia Status: Chronic (3) Sleep apnea Status: Chronic (4) Asthma Status: Chronic (5) CAD S/P percutaneous coronary angioplasty Status: Chronic (6) Insulin-requiring or dependent type II diabetes mellitus Status: Chronic (7) Vitamin D deficiency Status: Chronic (8) History of hernia repair Status: Acute Home Meds Active Scripts Furosemide (FUROSEMIDE) 20 Mg Tablet, 2 TAB PO DAILY, #0 TAB Prov:ADELITA SANCHEZ MD 01/01/16 Reported Medications Insulin Aspart (NOVOLOG) 100 Unit/Ml Soln, 100 UNIT SUBQ 07/01/18 Albuterol Sulfate (VENTOLIN HFA) 18 Gm Inh, 1-2 PUFF INH 3-4XD, INH 07/01/18 Nitroglycerin (NITROGLYCERIN) 0.4 Mg Tab.subl, 0.4 MG SL Q5MIN 07/23/17 Amlodipine Besylate (AMLODIPINE BESYLATE) 10 Mg Tablet, 1 TAB PO QDAY, TAB 07/23/17 Atorvastatin Calcium (LIPITOR) 40 Mg Tablet, 1 TAB PO QDAY, TAB 07/23/17 Lisinopril (LISINOPRIL) 20 Mg Tablet, 20 MG PO QDAY, TAB 07/23/17 Cholecalciferol (Vitamin D3) (VITAMIN D3) 5,000 Unit Capsule, 1 CAP PO DAILY, CAPSULE 12/16/15 Ticagrelor (BRILINTA) 90 Mg Tablet, 1 TAB PO BID 12/11/15 Metformin Hcl (METFORMIN HCL) 1,000 Mg Tablet, 1 TAB PO BID TAKE ONE TABLET BY MOUTH EVERY DAY 01/23/14 Aspirin (ASPIRIN) 81 Mg Tab.chew, 81 MG PO QDAY, TAB.CHEW TAKE 1 TABLET BY MOUTH EVERY DAY 09/27/13 Discontinued Reported Medications Benzonatate 100 Mg Cap (TESSALON PERLE 100 MG CAP) 100 Mg Capsule, 100 MG PO TID, #15 CAP 10/09/17 Carvedilol (CARVEDILOL) 25 Mg Tablet, 25 MG PO BID, #10 TAB 07/23/17 Discontinued Scripts Prednisone (PREDNISONE) 20 Mg Tablet, 20 MG PO QDAY for 6 Days, #18 TAB Prov:TIA HARRIS DO 07/01/18 Valacyclovir Hcl (VALACYCLOVIR) 1,000 Mg Tablet, 1000 MG PO TID for 7 Days, #21 TAB Prov:TIA HARRIS DO 07/01/18 Allergies: Coded Allergies: Tetanus Vaccines and Toxoid (Verified Allergy, Severe, ANAPHYLAXIS, 10/09/17) barium iodide (Verified Allergy, Intermediate, PROJECTILE VOMITING HIVES, 10/09/17) Review of Systems All Systems Reviewed/Normal: Yes, Except as Noted Gastrointestinal: Diarrhea, Abdominal Pain Exam General Appearance: Alert, Awake, No Acute Distress, Afebrile Neuro: No Gross deficits Eyes: PERRLA ENT: Oropharynx Clear Neck: Other (no cervical spine tenderness palpation or step-off) Cardiovascular: Regular Rate and Rhythm Respiratory: Clear to Auscultation GI: Other (soft, diffuse abdominal tenderness palpation greatest on the right side. No peritoneal signs. multiple well-healed surgical incisions. No evidence of a bulge or mass.) Musculoskeletal: Other (no thoracic or lumbar spine tenderness palpation or step-off) Extremities: Warm, Perfused Psych: Alert & Oriented X3, Appropriate Mood & Affect Medical Decision Making Data Points Result Diagram: 12/07/18 1558 12/07/18 1554 Assessment and Plan Problems: (1) Fall from slip, trip, or stumble Status: Acute Assessment & Plan: 12/07/18: Is certainly suspicious for a small bowel contusion. It has been 12 hours since her fall and there is no free air so I doubt there is any perforation. I have recommended that she be admitted to the hospital for observation and pain control. She is certainly at risk for perforation but she had no direct contact with her abdomen, her viscera were jostled around in her fall and this likely resulted in the contusion. We'll follow her vital signs, physical exam, and labs closely. If she appears to be clinically worsening then we will either proceed with surgery or repeat imaging with another CT scan of her abdomen. We'll ask the hospitalist to consult on this patient to help comanage her comorbidities. We'll use PPI therapy for GI prophylaxis. We'll hold off on Lovenox for now since she is still under the effect of her antiplatelet regimen. I have explained this plan to her in great d etail and she seems to understand and seems agreeable with this plan. (2) Contusion of small intestine Status: Acute (3) Insulin-requiring or dependent type II diabetes mellitus Status: Chronic Assessment & Plan: Will ask the hospitalist to comanage this problem. Will start insulin sliding scale. We will restart her home medications when she is able to eat. (4) CAD S/P percutaneous coronary angioplasty Status: Chronic Assessment & Plan: Will hold off on her Brilinta or now until the chance of needing surgery goes away. Its effects will be therapeutic for the next couple of days. Condition Stable Time Spent: < 30 min Venous Thromboembolism VTE Risk Physician Assess for VTE Risk: Yes Patient's VTE Risk: Low VTE Diagnostic Test 2 Days Prior to Admit: No Antithrombotics Is Pt On Any Antithrombotics?: No Problem Qualifiers (1) Fall from slip, trip, or stumble: Encounter type: initial encounter Qualified Codes: W01.0XXA - Fall on same level from slipping, tripping and stumbling without subsequent striking against object, initial encounter (2) Contusion of small intestine: Encounter type: initial encounter Qualified Codes: S36.429A - Contusion of unspecified part of small intestine, initial encounter NICOLETTE JORGE MD Dec 07, 2018 20:19
[2018-12-07 21:00] VITALS: BP 139/88
[2018-12-07] MEDS ORDERED: EZET10TA41 PO (21:30)
[2018-12-07] MEDS ORDERED: FURO-45 PO (21:30)
[2018-12-07] MEDS ORDERED: HYDR25TA66 PO (21:30)
[2018-12-07] MEDS ORDERED: ATOR40TA24 PO (21:30)
[2018-12-07] MEDS ORDERED: LISI-374 PO (21:30)
[2018-12-07] MEDS ORDERED: ISOS60TA42 PO (21:30)
[2018-12-07] MEDS ORDERED: CAR3.125 PO (21:30)
[2018-12-07] MEDS ORDERED: ACETAMINOPHEN(*)1000 MG/100 ML 100 ML IVPB PRN (21:55)
[2018-12-07] MEDS: NS(*) 0.9% 1000 ML BAG 1,000 ML IV PRN (22:04)
--- NOTE | 2018-12-07 22:24 | Hospitalist Consultation ---
History of Present Illness Requesting Physician Edward Reason for Consult Medication Management for T2DM/CAD History of Present Illness 58yo female with CAD, CHF, and h/o hernia repairs who came to the ER after a fall. She was in her normal state of health this morning. She slipped on antifreeze on the floor and came down very hard on her back. She doesn't report any LOC. Right after the fall she developed abdominal pain. She has then had n/v/loose stools. She ended up going to the ER. An abdominal CT showed small bowel in the right abdomen to the mid to lower aspect with appearance consistent with nonspecific enteritis with mesenteric edema and free fluid. She denies any cp/orthopnea/LE edema. History Problems: (1) CHF (congestive heart failure) Status: Chronic (2) History of coronary artery disease Status: Chronic (3) Hypertension Status: Chronic (4) Asthma Status: Chronic (5) Sleep apnea Status: Chronic (6) Insulin-requiring or dependent type II diabetes mellitus Status: Chronic (7) Hernia of abdominal wall Status: Chronic (8) Cardiac arrest Status: Chronic Home Meds Active Scripts Furosemide (FUROSEMIDE) 20 Mg Tablet, 2 TAB PO DAILY PRN for edema, #0 TAB Prov:LESLYE SMITH MD 12/07/18 Reported Medications Hydralazine Hcl (HYDRALAZINE HCL) 25 Mg Tablet, 25 MG PO BID, TAB 12/07/18 Ezetimibe (ZETIA) 10 Mg Tablet, 10 MG PO QDAY, TAB 12/07/18 Carvedilol (CARVEDILOL) Unknown Strength Tab, PO BID, TAB 12/07/18 Isosorbide Mononitrate (ISOSORBIDE MONONITRATE ER) 60 Mg Tab.er.24h, 60 MG PO DAILY 12/07/18 Atorvastatin Calcium (LIPITOR) 40 Mg Tablet, 2 TAB PO QDAY, TAB 12/07/18 Lisinopril (LISINOPRIL) 40 Mg Tablet, 40 MG PO QDAY, TAB 12/07/18 Insulin Aspart (NOVOLOG) Unknown Strength Soln, SUBQ 07/01/18 Albuterol Sulfate (VENTOLIN HFA) 18 Gm Inh, 1-2 PUFF INH 3-4XD, INH 07/01/18 Nitroglycerin (NITROGLYCERIN) 0.4 Mg Tab.subl, 0.4 MG SL Q5MIN 2/2/18 Amlodipine Besylate (AMLODIPINE BESYLATE) 10 Mg Tablet, 1 TAB PO QDAY, TAB 07/23/17 Cholecalciferol (Vitamin D3) (VITAMIN D3) 5,000 Unit Capsule, 1 CAP PO DAILY, CAPSULE 12/16/15 Ticagrelor (BRILINTA) 90 Mg Tablet, 1 TAB PO BID 12/11/15 Metformin Hcl (METFORMIN HCL) 1,000 Mg Tablet, 1 TAB PO BID TAKE ONE TABLET BY MOUTH EVERY DAY 01/23/14 Aspirin (ASPIRIN) 81 Mg Tab.chew, 81 MG PO QDAY, TAB.CHEW TAKE 1 TABLET BY MOUTH EVERY DAY 09/27/13 Discontinued Reported Medications Benzonatate 100 Mg Cap (TESSALON PERLE 100 MG CAP) 100 Mg Capsule, 100 MG PO TID, #15 CAP 10/09/17 Carvedilol (CARVEDILOL) 25 Mg Tablet, 25 MG PO BID, #10 TAB 07/23/17 Discontinued Scripts Prednisone (PREDNISONE) 20 Mg Tablet, 20 MG PO QDAY for 6 Days, #18 TAB Prov:TIA HARRIS S DO 07/01/18 Valacyclovir Hcl (VALACYCLOVIR) 1,000 Mg Tablet, 1000 MG PO TID for 7 Days, #21 TAB Prov:TIA HARRIS S DO 07/01/18 Allergies: Coded Allergies: Tetanus Vaccines and Toxoid (Verified Allergy, Severe, ANAPHYLAXIS, 10/09/17) barium iodide (Verified Allergy, Intermediate, PROJECTILE VOMITING HIVES, 10/09/17) Other Social/Family Hx Lives alone. Works for [employer]. No alcohol and never tobacco. Hx Smoking: No Smoking Status: Never Smoker Exposure to Second Hand Smoke?: No Caffeine Intake: Coffee, Tea Caffeine/Cups Per Day: 2 cups coffee/day, 4-6 cups tea/day Hx Alcohol Use: No ("none") Hx Substance Use Disorder: No Social Drug Use: Never Review of Systems All Systems Reviewed/Normal: Yes, Except as Noted Exam Vital Signs Vital Signs Date Time Temp Pulse Resp B/P (MAP) Pulse Ox O2 Delivery O2 Flow Rate FiO2 12/07/18 21:00 98.5 73 18 139/88 (105) 94 Nasal Cannula 2.0 General Appearance: Alert, Awake, No Acute Distress Neuro: No Gross deficits Cardiovascular: Regular Rate and Rhythm, No JVD (but has a large neck) Respiratory: Clear to Auscultation GI: Other (Soft, non-distended, discomfort with epigastric palpation, no perit triana signs, no guarding. Normal active BS.) Extremities: No Edema Integumentary: No Jaundice, No Cyanosis Medical Decision Making Data Points Result Diagram: 12/07/18 1558 12/07/181557 Item Value Date Time Lactate 1.0 mmol/L 12/07/182004 Whole Blood Glucose 65 mg/DL L 12/07/182013 Random Glucose 72 mg/dl L 12/07/181557 Blood Urea Nitrogen 18 mg/dl 12/07/188 Creatinine 0.60 mg/dl 12/07/181557 Total Bilirubin 0.9 mg/dl 12/07/181557 Aspartate Amino Transf (AST/SGOT) 30 U/L 12/07/181557 Alanine Aminotransferase (ALT/SGPT) 47 U/L 12/07/181557 Alkaline Phosphatase 107 U/L 12/07/181557 Neutrophils (%) (Auto) 75.8 % H 12/07/181557 Lymphocytes (%) (Auto) 17.3 % L 12/07/181557 Monocytes (%) (Auto) 5.6 % 12/07/181557 Eosinophils (%) (Auto) 0.5 % 12/07/181557 Basophils (%) (Auto) 0.8 % 12/07/181557 Nucleated RBC Relative Count (auto) 0.1 /100WBC 12/07/181557 EKG / Imaging Imaging Cervical Spine CT - 1. No acute intracranial abnormality. 2. No acute osseous or acute alignment abnormality of the cervical spine. Degenerative changes. Chest/Abd/Pelvis CT - 1. Spine shows no acute abnormality. 2. Chest shows no acute abnormality or indication of thoracic trauma. 3. The small bowel in the right abdomen to the mid to lower aspect does show abnormal appearance consistent with nonspecific enteritis with mesenteric edema and free fluid. This is nonspecific and could be due to infectious or inflammatory process. Ischemic process is less likely as the vessels all appear to be well opacified without indication of filling defect. 4. Other chronic stable findings as above. Head CT - 1. No acute intracranial abnormality. 2. No acute osseous or acute alignment abnormality of the cervical spine. Degenerative changes. Assessment and Plan Problems: (1) Fall from slip, trip, or stumble Status: Acute Assessment & Plan: She presented to the ER after a slip and fall onto her back. She did hit her head, but had no reported LOC. She developed abdominal pain with n/v/loose stools. CT is concerning for nonspecific enteritis with mesenteric edema and free fluid related to injury from the fall. She has been made NPO for possibility of surgical intervention for perforation. She currently has a high bleeding risk secondary to Brilinta and ASA use. See below. (2) History of coronary artery disease Status: Chronic Assessment & Plan: She has had multiple coronary stents over the last 10 years, with the last stent placement in June of 2017. She is chronically on ASA, Brilinta, Coreg, Atorvastatin, Zetia and Isosorbide. All will be held while NPO. If she does need surgery, then will need to have multiple platelet transfusions, likely, to help reverse the effects of the antiplatelet medications. (3) CHF (congestive heart failure) Status: Chronic Assessment & Plan: She doesn't know her EF. We don't have her last echo. Our last echo is from 2010 and she had a preserved EF. She is on chronic Coreg, Hydralazine, Isosorbide, and prn Lasix. No evidence by symptoms or exam of exacerbation. (4) Insulin-requiring or dependent type II diabetes mellitus Status: Chronic Assessment & Plan: She is chronically on metformin and an insulin pump. Metformin to be held. Her basal insulin rate is 2 units/hr. She gets 11 units of insulin before meals and then she does a correction of glucose after the m eal. Her glucose was 72 then 65 in the ER. Recheck on the floor is 63. She is asymptomatic. Her insulin pump has been removed and she will be followed q6 hours with glucose checks. If she drops, then will need to check q4h and start D5 1/2NS. Copies to: MANISH AVILA; NICOLETTE JORGE MD ; Venous Thromboembolism Antithrombotics Is Pt On Any Antithrombotics?: No Exam Sepsis Risk: No Definite Risk Problem Qualifiers (1) Fall from slip, trip, or stumble: Encounter type: initial encounter Qualified Codes: W01.0XXA - Fall on same level from slipping, tripping and stumbling without subsequent striking against object, initial encounter LESLYE SMITH MD Dec 07, 2018 22:24
[2018-12-08] VITALS (7 sets, daily range): BP systolic 140–163; BP diastolic 71–84
[2018-12-08] MEDS: METOPROLOL TART 5 MG/5 ML VIAL IVP SCH ×6 (00:31→21:20)
[2018-12-08] MEDS: ONDANSETRON 4 MG/2 ML VIAL IVP PRN ×3 (02:15→18:24)
[2018-12-08 06:14] LABS: PLATELET COUNT, AUTOMATED 190 K/uL (150-450)
--- NOTE | 2018-12-08 07:14 | General Surgery Progress Note ---
Subjective Progress Notes Subjective Had some nausea after IV dilaudid. No new complaints. Still having a lot of abdominal pain. No further diarrhea. Physical Exam Vital Signs Date Time Temp Pulse Resp B/P (MAP) Pulse Ox O2 Delivery O2 Flow Rate FiO2 12/08/18 03:17 97.6 69 16 163/75 (104) 92 Nasal Cannula 2.0 Intake and Output 12/08/18 07:01 Intake Total 1000 ml Balance 1000 ml Intake IV Total 1000 ml # Voids 1 General Appearance: Alert, Awake, No Acute Distress, Afebrile GI: Other (Soft, diffuse TTP, especially on right. No peritoneal signs.) Extremities: Warm, Perfused Result Diagram: 12/08/1853612/08/18536 Assessment and Plan Problems: (1) Fall from slip, trip, or stumble Status: Acute Assessment & Plan: 12/07/18: Is certainly suspicious for a small bowel contusion. It has been 12 hours since her fall and there is no free air so I doubt there is any perforation. I have recommended that she be admitted to the hospital for observation and pain control. She is certainly at risk for perforation but she had no direct contact with her abdomen, her viscera were jostled around in her fall and this likely resulted in the contusion. We'll follow her vital signs, physical exam, and labs closely. If she appears to be clinically worsening then we will either proceed with surgery or repeat imaging with another CT scan of her abdomen. We'll ask the hospitalist to consult on this patient to help comanage her comorbidities. We'll use PPI therapy for GI prophylaxis. We'll hold off on Lovenox for now since she is still under the effect of her antiplatelet regimen. I have explained this plan to her in great detail and she seems to understand and seems agreeable with this plan. 12/08/18: Seems to be doing well. No fevers or tachycardia. WBC coming down. H/H stable. Abdominal exam is benign. Will continue bowel rest and this afternoon will start clear diet if she continues to do well. Continue blood sugar control with SSI and will restart basal rate via insulin pump when diet started. Change IV pain control to Morphine from dilaudid. PPI for GI prophylaxis. Hold on blood thinners. She's still anticoagulated from Brilinta, last dose was yesterday. Ambulate, IS, etc today. (2) Contusion of small intestine Status: Acute Assessment & Plan: See above (3) Insulin-requiring or dependent type II diabetes mellitus Status: Chronic Assessment & Plan: Will ask the hospitalist to comanage this problem. Will start insulin sliding scale. We will restart her home medications when she is able to eat. (4) CAD S/P percutaneous coronary angioplasty Status: Chronic Assessment & Plan: Will hold off on her Brilinta or now until the chance of needing surgery goes away. Its effects will be therapeutic for the next couple of days. Condition Stable. Time Spent: < 30 min Exam Sepsis Risk: No Definite Risk Problem Qualifiers (1) Fall from slip, trip, or stumble: Encounter type: initial encounter Qualified Codes: W01.0XXA - Fall on same level from slipping, tripping and stumbling without subsequent striking against object, initial encounter (2) Contusion of small intestine: Encounter type: initial encounter Qualified Codes: S36.429A - Contusion of unspecified part of small intestine, initial encounter NICOLETTE JORGE MD Dec 08, 2018 07:14
[2018-12-08] MEDS: PANTOPRAZOLE SOD 40 MG IV VIAL IVP SCH (08:26)
[2018-12-08] MEDS: MORPHINE 2 MG/ML SYR IVP PRN ×3 (08:31→21:21)
[2018-12-08] MEDS: NS(*) 0.9% 1000 ML BAG 1,000 ML IV PRN ×2 (08:55→19:13)
--- NOTE | 2018-12-08 09:23 | Hospitalist Progress Note ---
Subjective Progress Notes Subjective She only c/o some lingering abdominal pain. Glucose modestly elevated this AM. Physical Exam Vital Signs Date Time Temp Pulse Resp B/P (MAP) Pulse Ox O2 Delivery O2 Flow Rate FiO2 12/08/18 07:48 99.2 71 14 157/76 (103) 95 Nasal Cannula 2.0 Intake and Output 12/08/18 07:01 Intake Total 1000 ml Balance 1000 ml Intake IV Total 1000 ml # Voids 1 General Appearance: Alert, Awake Cardiovascular: Regular Rate and Rhythm Respiratory: Clear to Auscultation Result Diagram: 12/08/18 0537 12/08/18 0537 Item Value Date Time Whole Blood Glucose 168 mg/DL H 12/08/1844 Assessment and Plan Problems: (1) Insulin-requiring or dependent type II diabetes mellitus Status: Chronic Assessment & Plan: She is chronically on metformin and an insulin pump. Metformin to be held and her insulin pump has been removed. Continue q6 hours glucose checks. Continue SSI as needed. Would also consider low dose Lantus if glucoses persistently above 160-180. If she did happen to become hypoglycemic would start dextrose infusion. (2) History of coronary artery disease Status: Chronic Assessment & Plan: She has had multiple coronary stents over the last 10 years, with the last stent placement in June of 2017. She is chronically on ASA, Brilinta, Coreg, Atorvastatin, Zetia and Isosorbide. All are being held while NPO. If she does need surgery, then may need to consider platelet transfusions. (3) CHF (congestive heart failure) Status: Chronic Assessment & Plan: She doesn't know her EF and we don't have her a copy last echocardiogram. Our last echo is from 2010 and she had a preserved EF. She is on chronic Coreg, Hydralazine, Isosorbide, and prn Lasix. No evidence of exacerbation by symptoms or exam of exacerbation. Exam Sepsis Risk: No Definite Risk ERNESTO CARDOZA MD Dec 08, 2018 09:23
[2018-12-08] MEDS: INSULIN HUM LISPRO 100 UN/ML 3 ML VIAL SUBQ PRN ×2 (11:38→18:31)
--- NOTE | 2018-12-08 12:08 | Medical Nutrition Therapy ---
Nutrition Anthropometrics Height (Inches): 62.00 Height (Calculated Centimeters: 157.352330 Weight (Pounds): 197 Weight (Calculated Kilograms): 89.358 BMI: 36 Parish Nutrition Score: Adequate Parish Nutrition Risk Score: 21 Dietary Referral Nutrition Risk Factors: Special Diet Nutrition Risk Comment: follows ADA diet Physical Findings Physical Appearance: Obese BMI 30-39 Skin Appearance Skin Appearance: Edema Edema Location Modifier: Edema Location: Type of Edema: Degree of Edema: Gastrointestinal Symptoms GI Symtoms: Nausea Tube Present: Bowel Sounds: Recent Bowel Pattern: Stool Characteristics: Nutrition/Food History Poor Nutritional Diagnosis Nutritional Risk Acuity 3: Nausea Past Medical History: Hypercolesterolemia, Htn, Crohns, possible CVA, T2DM Nutritional Acuity: 3-Mild Energy Requirement: 1657 Protein Requirement: 89 (1g/kg) Fluid Requirement: 2216 (25mL/kg) Diet Type: NPO (Nothing by Mouth) Nutrition Intervention: Incr diet as tolerated, Check glucose Drug: Diuretics Drug/Nutrition Recommendations: Check Serum K+, Potassium Supplement Nutrition Monitoring & Eval Nutrition Goals: Eat 75-100% Meal Nutrition Monitoring: Monitor BG, Intakes RD Patient Assessment Time: [address] Assessment Type: RD Assessment Patient Nutrition Acuity: 3-Mild Follow Up Date: Dec 13, 2018 Nutritional Comment: 12/08/18-Spoke with pt this am. Pt states she avoids CHO, talked about wanting to try ketogenic diet. Reviewed medical hx significant for CAD, CHD. Has insulin pump has been seen previously for diabetic diet education/insulin pump training. Taking Lasix, metformin, atorvastatin at home. Discussed food choices to correct hypoglycemia. Pt had stated she was using peanut butter to correct. Discussed quick digesting CHO foods that can be used. Discussed consequences of high lipid diet low in CHO in diabetics with CAD. Will continue to monitor BG, intakes, need for additional nutriton education.VICENTA FLEMING Dec 08, 2018 12:01
[2018-12-08] MEDS ORDERED: FURO-45 PO (15:08)
[2018-12-09] VITALS (8 sets, daily range): BP systolic 148–175; BP diastolic 70–107
[2018-12-09] MEDS: METOPROLOL TART 5 MG/5 ML VIAL IVP SCH ×6 (00:53→21:23)
[2018-12-09] MEDS: NS(*) 0.9% 1000 ML BAG 1,000 ML IV PRN ×2 (04:54→16:04)
[2018-12-09] MEDS: ONDANSETRON 4 MG/2 ML VIAL IVP PRN ×4 (05:33→19:34)
[2018-12-09] MEDS: MORPHINE 2 MG/ML SYR IVP PRN ×4 (05:33→19:34)
[2018-12-09 06:32] LABS: PLATELET COUNT, AUTOMATED 190 K/uL (150-450)
--- NOTE | 2018-12-09 08:00 | General Surgery Progress Note ---
Subjective Progress Notes Subjective Still complaining of abdominal pain and dry heaves. Threw up once overnight. Still does not want NG tube. No flatus. No appetite. Physical Exam Vital Signs Date Time Temp Pulse Resp B/P (MAP) Pulse Ox O2 Delivery O2 Flow Rate FiO2 12/09/18 07:21 98.2 66 14 150/79 (102) 95 Nasal Cannula 2.0 Intake and Output 12/09/18 07:01 Intake Total 1985 ml Balance 1985 ml Intake IV Total 1985 ml # Voids 4 General Appearance: Alert, Awake, No Acute Distress, Afebrile GI: Other (Soft, diffuse TTP, R>L) Extremities: Warm, Perfused Result Diagram: 12/09/1816 12/09/18 05 Assessment and Plan Problems: (1) Fall from slip, trip, or stumble Status: Acute Assessment & Plan: 12/07/18: Is certainly suspicious for a small bowel contusion. It has been 12 hours since her fall and there is no free air so I doubt there is any perforation. I have recommended that she be admitted to the hospital for observation and pain control. She is certainly at risk for perforation but she had no direct contact with her abdomen, her viscera were jostled around in her fall and this likely resulted in the contusion. We'll follow her vital signs, physical exam, and labs closely. If she appears to be clinically worsening then we will either proceed with surgery or repeat imaging with another CT scan of her abdomen. We'll ask the hospitalist to consult on this patient to help comanage her comorbidities. We'll use PPI therapy for GI prophylaxis. We'll hold off on Lovenox for now since she is still under the effect of her antiplatelet regimen. I have explained this plan to her in great detail and she seems to understand and seems agreeable with this plan. 12/08/18: Seems to be doing well. No fevers or tachycardia. WBC coming down. H/H stable. Abdominal exam is benign. Will continue bowel rest and this afternoon will start clear diet if she continues to do well. Continue blood sugar control with SSI and will restart basal rate via insulin pump when diet started. Change IV pain control to Morphine from dilaudid. PPI for GI prophylaxis. Hold on blood thinners. She's still anticoagulated from Brilinta, last dose was yesterday. Ambulate, IS, etc today. 12/09/18: Doing well. Afebrile, VSS, labs all look OK. Still with ileus related to small bowel contusion. Continue bowel rest and IV fluids. If not able to tolerate diet in the next couple of days, will need to place PICC line and start TPN as her small bowel heals. O/W continue current plan. Will start lovenox as Brilinta effects wearing off by this point. PPI for GI prophylaxis. Ambulate, IS. Pt does not want NG tube so will hold off on this for now. If N/V worsens then may need to place NG tube. (2) Contusion of small intestine Status: Acute Assessment & Plan: See above (3) Ileus Status: Acute Assessment & Plan: Ileus related to small bowel contusion. Bowel rest and IV fluids until resolution. (4) Insulin-requiring or dependent type II diabetes mellitus Status: Chronic Assessment & Plan: Will ask the hospitalist to comanage this problem. Will start insulin sliding scale. We will restart her home medications when she is able to eat. (5) CAD S/P percutaneous coronary angioplasty Status: Chronic Assessment & Plan: Will hold off on her Brilinta or now until the chance of needing surgery goes away. Its effects will be therapeutic for the next couple of days. Condition Stable. Time Spent: < 30 min Exam Sepsis Risk: No Definite Risk Problem Qualifiers (1) Fall from slip, trip, or stumble: Encounter type: initial encounter Qualified Codes: W01.0XXA - Fall on same level from slipping, tripping and stumbling without subsequent striking against object, initial encounter (2) Contusion of small intestine: Encounter type: initial encounter Qualified Codes: S36.429A - Contusion of unspecified part of small intestine, initial encounter NICOLETTE JORGE MD Dec 09, 2018 08:00
[2018-12-09] MEDS: ENOXAPARIN 40 MG/0.4ML SYR SC SCH (08:36)
[2018-12-09] MEDS: PANTOPRAZOLE SOD 40 MG IV VIAL IVP SCH (08:36)
--- NOTE | 2018-12-09 09:36 | Hospitalist Progress Note ---
Subjective Progress Notes Subjective This patient was admitted for an ileus. She had no acute issues overnight. Patient Complains of: Cardiovascular: No: Chest Pain Respiratory: No: Shortness of Breath Physical Exam Vital Signs Date Time Temp Pulse Resp B/P (MAP) Pulse Ox O2 Delivery O2 Flow Rate FiO2 12/09/18 08:47 96 Nasal Cannula 2.0 12/09/18 07:21 98.2 66 14 150/79 (102) Intake and Output 12/09/18 07:01 Intake Total 1985 ml Balance 1985 ml IV Total 1985 ml # Voids 4 Cardiovascular: Regular Rate and Rhythm Respiratory: Clear to Auscultation Result Diagram: 12/09/18 0616 12/09/18 0523 Assessment and Plan Problems: (1) Insulin-requiring or dependent type II diabetes mellitus Status: Chronic Assessment & Plan: She is chronically on metformin and an insulin pump. The metformin is on hold as she is NPO. Her pump is also on hold. She is on sliding scale level #2. (2) History of coronary artery disease Status: Chronic Assessment & Plan: She has had multiple coronary stents over the last 10 years, with the last stent placement in June of 2017. She is chronically on ASA, Brilinta, Coreg, Atorvastatin, Zetia and Isosorbide. All are being held while NPO. (3) CHF (congestive heart failure) Status: Chronic Assessment & Plan: She doesn't know her EF and we don't have her a copy last echocardiogram. Our last echo is from 2010 and she had a preserved EF. She is on chronic Coreg, Hydralazine, Isosorbide, and prn Lasix. Her weight is currently stable. Exam Sepsis Risk: No Definite Risk NICOLETTE KYLE DO Dec 09, 2018 09:36
[2018-12-10] VITALS (7 sets, daily range): BP systolic 147–170; BP diastolic 65–85
[2018-12-10] MEDS: ONDANSETRON 4 MG/2 ML VIAL IVP PRN ×4 (00:44→17:47)
[2018-12-10] MEDS: METOPROLOL TART 5 MG/5 ML VIAL IVP SCH ×6 (00:45→21:13)
[2018-12-10] MEDS: MORPHINE 2 MG/ML SYR IVP PRN ×4 (00:45→17:47)
[2018-12-10] MEDS: NS(*) 0.9% 1000 ML BAG 1,000 ML IV PRN ×2 (04:44→19:41)
[2018-12-10 05:45] LABS: PLATELET COUNT, AUTOMATED 182 K/uL (150-450)
[2018-12-10] MEDS: ENOXAPARIN 40 MG/0.4ML SYR SC SCH (08:29)
[2018-12-10] MEDS: PANTOPRAZOLE SOD 40 MG IV VIAL IVP SCH (08:29)
--- NOTE | 2018-12-10 10:36 | General Surgery Progress Note ---
Subjective Progress Notes Subjective feels a little better, no NV, no stool or flatus Physical Exam Vital Signs Date Time Temp Pulse Resp B/P (MAP) Pulse Ox O2 Delivery O2 Flow Rate FiO2 12/10/18 07:13 95 Nasal Cannula 2.0 12/10/18 07:02 97.5 65 170/85 (113) 12/09/18 14:34 14 Intake and Output 12/10/18 07:01 Intake Total 2000 ml Balance 2000 ml Intake Oral 0 ml IV Total 2000 ml # Voids 3 # Bowel Movements 1 General Appearance: Alert, Awake, No Acute Distress, Afebrile Cardiovascular: Normal Rhythm & Peripheral Pulses Respiratory: No Respiratory Distress, Clear to Auscultation GI: Soft and Non-Tender, Other (no peritoneal s/s) Musculoskeletal: No Weakness/Pain Integumentary: Skin Intact without Lesion / Mass Psych: Alert & Oriented X3, Appropriate Mood & Affect Result Diagram: 12/10/18 0530 12/10/18 0530 Monitor Interpretation: Normal Sinus Rhythm Assessment and Plan Problems: (1) Fall from slip, trip, or stumble Status: Acute Assessment & Plan: 12/07/18: Is certainly suspicious for a small bowel contusion. It has been 12 hours since her fall and there is no free air so I doubt there is any perforation. I have recommended that she be admitted to the hospital for observation and pain control. She is certainly at risk for perforation but she had no direct contact with her abdomen, her viscera were jostled around in her fall and this likely resulted in the contusion. We'll follow her vital signs, physical exam, and labs closely. If she appears to be clinically worsening then we will either proceed with surgery or repeat imaging with another CT scan of her abdomen. We'll ask the hospitalist to consult on this patient to help comanage her comorbidities. We'll use PPI therapy for GI prophylaxis. We'll hold off on Lovenox for now since she is still under the effect of her antiplatelet regimen. I have explained this plan to her in great detail and she seems to understand and seems agreeable with this plan. 12/08/18: Seems to be doing well. No fevers or tachycardia. WBC coming down. H/H stable. Abdominal exam is benign. Will continue bowel rest and this afternoon will start clear diet if she continues to do well. Continue blood sugar control with SSI and will restart basal rate via insulin pump when diet started. Change IV pain control to Morphine from dilaudid. PPI for GI prophylaxis. Hold on blood thinners. She's still anticoagulated from Brilinta, last dose was yesterday. Ambulate, IS, etc today. 12/09/18: Doing well. Afebrile, VSS, labs all look OK. Still with ileus related to small bowel contusion. Continue bowel rest and IV fluids. If not able to tolerate diet in the next couple of days, will need to place PICC line and start TPN as her small bowel heals. O/W continue current plan. Will start lovenox as Brilinta effects wearing off by this point. PPI for GI prophylaxis. Ambulate, IS. Pt does not want NG tube so will hold off on this for now. If N/V worsens then may need to place NG tube. 12/10/18 slow progress. Mechanism of injury is a bit unusual though pt again confirms no prior GI s/s prior to her fall. Will repeat ABD CT scan today. Cont bowel rest. (2) Contusion of small intestine Status: Acute Assessment & Plan: See above (3) Ileus Status: Acute Assessment & Plan: Ileus related to small bowel contusion. Bowel rest and IV fluids until resolution. (4) Insulin-requiring or dependent type II diabetes mellitus Status: Chronic Assessment & Plan: Will ask the hospitalist to comanage this problem. Will start insulin sliding scale. We will restart her home medications when she is able to eat. (5) CAD S/P percutaneous coronary angioplasty Status: Chronic Assessment & Plan: Will hold off on her Brilinta or now until the chance of needing surgery goes away. Its effects will be therapeutic for the next couple of days. Exam Sepsis Risk: No Definite Risk Problem Qualifiers (1) Fall from slip, trip, or stumble: Encounter type: initial encounter Qualified Codes: W01.0XXA - Fall on same level from slipping, tripping and stumbling without subsequent striking against object, initial encounter (2) Contusion of small intestine: Encounter type: initial encounter Qualified Codes: S36.429A - Contusion of unspecified part of small intestine, initial encounter SHELDON TARANGO MD Dec 10, 2018 10:36
[2018-12-10] MEDS ORDERED: IOPAMIDOL 76% 100 ML INFUS BTL 100 ML ONE (10:50)
--- NOTE | 2018-12-10 12:43 | RADIOLOGY IMAGING REPORT ---
FACILITY: [facility] - [place], [place] PATIENT NAME: Genna Morrell : 1960 MR: [id number] V: [id number] EXAM DATE: ORDERING PHYSICIAN: SHELDON TARANGO TECHNOLOGIST: Location: [facility] [place] Patient: Genna Morrell : 1960 Visit/Account:[id number] Date of Sevice: 12/10/2018 EXAMINATION: CT abdomen without IV contrast CT abdomen with IV contrast CT pelvis without IV contrast CT pelvis with IV contrast HISTORY: Abdominal pain. TECHNIQUE: Spiral scans were obtained through the abdomen and pelvis before and during injection of nonionic iodinated intravenous contrast. Sagittal and coronal reformatted images are also submitted . One of the following dose optimization techniques was utilized in the performance of this exam: Autom ated exposure control; adjustment of the mA and/or kV according to the patient's size; or use of an i terative reconstruction technique. Specific details can be referenced in the facility's radiology C T exam operational policy. CONTRAST: 75 mL of IV Isovue-370 COMPARISON: Chest, abdomen, and pelvis CT dated 12/07/2018. FINDINGS: Lower chest: Mild atelectasis in the lung bases. Coronary artery calcification. Liver / biliary: Cholecystectomy. Otherwise negative. Pancreas: Negative. Spleen: Negative. Adrenal glands: Negative. Kidneys: Negative. Pelvic structures: Hysterectomy. Otherwise negative. Bowel: Distal colonic diverticulosis with multiple surrounding surgical clips. No evidence of acute d iverticulitis. Persistent wall thickening and hyperenhancement of the distal small bowel loop in the right lower quadrant consistent with enteritis. This is slightly improved compared with 12/07/2018. Peritoneum / retroperitoneum / mesenteries: Mild free fluid and inflammatory changes in the right low er quadrant adjacent to the abnormal small bowel loops. This is slightly improved compared with 12/07. No free air. No obstruction. Vessels: Noncalcified plaque in the aorta with no significant stenosis or aneurysm. Lymph nodes: Negative. Musculoskeletal / Body wall: Scattered subcutaneous edema. Multilevel degenerative disc disease and f acet hypertrophy in the thoracolumbar spine. IMPRESSION: 1. Persistent nonspecific enteritis in the right lower quadrant, slightly improved compared with 11/19. 2. Otherwise no new acute abnormality. Results were called to SHELDON TARANGO at 12/10/2018 12:37 PM. Report Dictated By: Everardo Martinez MD at 12/10/2018 12:25 PM Report E-Signed By: Everardo Martinez MD at 12/10/2018 12:38 PM WSN:[id number]
--- NOTE | 2018-12-10 14:34 | Hospitalist Progress Note ---
Subjective Progress Notes Subjective ELIDA overnight, without new complaint this am. Physical Exam Vital Signs Date Time Temp Pulse Resp B/P (MAP) Pulse Ox O2 Delivery O2 Flow Rate FiO2 12/10/18 14:20 70 12/10/18 14:17 97.9 70 170/81 (110) Nasal Cannula 2.0 12/09/18 14:34 14 Intake and Output 12/10/18 07:01 Intake Total 2000 ml Balance 2000 ml Intake Oral 0 ml IV Total 2000 ml # Voids 3 # Bowel Movements 1 General Appearance: Awake, No Acute Distress Neuro: No Gross deficits Cardiovascular: Normal Rhythm & Peripheral Pulses Respiratory: No Respiratory Distress Result Diagram: 12/10/1852912/10/18529 Assessment and Plan Problems: (1) Insulin-requiring or dependent type II diabetes mellitus Status: Chronic Assessment & Plan: She is chronically on metformin and an insulin pump. The metformin is on hold as she is NPO. Her pump is also on hold. She is on sliding scale level #2. (2) History of coronary artery disease Status: Chronic Assessment & Plan: She has had multiple coronary stents over the last 10 years, with the last stent placement in June of 2017. She is chronically on ASA, Brilinta, Coreg, Atorvastatin, Zetia and Isosorbide. All are being held while NPO. (3) CHF (congestive heart failure) Status: Chronic Assessment & Plan: She doesn't know her EF and we don't have her a copy last echocardiogram. Our last echo is from 2010 and she had a preserved EF. She is on chronic Coreg, Hydralazine, Isosorbide, and prn Lasix. Her weight is currently stable. Exam Sepsis Risk: No Definite Risk BRUCE ESPARZA DO Dec 10, 2018 14:34
[2018-12-10] MEDS ORDERED: diphenhydrAMINE 25 MG CAP PO PRN (18:35)
[2018-12-10] MEDS: ACETAMINOPHEN(*)1000 MG/100 ML 100 ML IVPB PRN (21:13)
[2018-12-11] VITALS (10 sets, daily range): BP systolic 137–196; BP diastolic 61–88
[2018-12-11] MEDS: METOPROLOL TART 5 MG/5 ML VIAL IVP SCH ×6 (00:57→22:22)
[2018-12-11] MEDS: MORPHINE 2 MG/ML SYR IVP PRN ×4 (01:03→23:25)
[2018-12-11] MEDS: ONDANSETRON 4 MG/2 ML VIAL IVP PRN ×4 (01:03→23:25)
[2018-12-11] MEDS: NS(*) 0.9% 1000 ML BAG 1,000 ML IV PRN ×2 (05:44→20:10)
--- NOTE | 2018-12-11 07:41 | General Surgery Progress Note ---
Subjective Progress Notes Subjective feels better. No flatus or stool. Physical Exam Vital Signs Date Time Temp Pulse Resp B/P (MAP) Pulse Ox O2 Delivery O2 Flow Rate FiO2 12/11/18 07:18 97.2 59 179/77 (111) 93 Nasal Cannula 12/11/18 05:46 1.5 12/10/18 19:01 18 Intake and Output 12/11/18 07:01 Intake Total 100 ml Balance 100 ml Intake Oral 100 ml # Voids 2 General Appearance: Alert, Awake, No Acute Distress, Afebrile Neuro: No Gross deficits Cardiovascular: Normal Rhythm & Peripheral Pulses Respiratory: No Respiratory Distress, Clear to Auscultation GI: Soft and Non-Tender, Other (+ BS. No peritoneal s/s.) Musculoskeletal: No Weakness/Pain Integumentary: Skin Intact without Lesion / Mass Psych: Alert & Oriented X3, Appropriate Mood & Affect Result Diagram: 12/10/18 0530 12/10/18 0530 Monitor Interpretation: Normal Sinus Rhythm Assessment and Plan Problems: (1) Fall from slip, trip, or stumble Status: Acute Assessment & Plan: 12/07/18: Is certainly suspicious for a small bowel contusion. It has been 12 hours since her fall and there is no free air so I doubt there is any perforation. I have recommended that she be admitted to the hospital for observation and pain control. She is certainly at risk for perforation but she had no direct contact with her abdomen, her viscera were jostled around in her fall and this likely resulted in the contusion. We'll follow her vital signs, physical exam, and labs closely. If she appears to be clinically worsening then we will either proceed with surgery or repeat imaging with another CT scan of her abdomen. We'll ask the hospitalist to consult on this patient to help comanage her comorbidities. We'll use PPI therapy for GI prophylaxis. We'll hold off on Lovenox for now since she is still under the effect of her antiplatelet regimen. I have explained this plan to her in great detail and she seems to understand and seems agreeable with this plan. 12/08/18: Seems to be doing well. No fevers or tachycardia. WBC coming down. H/H stable. Abdominal exam is benign. Will continue bowel rest and this afternoon will start clear diet if she continues to do well. Continue blood sugar control with SSI and will restart basal rate via insulin pump when diet started. Change IV pain control to Morphine from dilaudid. PPI for GI prophylaxis. Hold on blood thinners. She's still anticoagulated from Brilinta, last dose was yesterday. Ambulate, IS, etc today. 12/09/18: Doing well. Afebrile, VSS, labs all look OK. Still with ileus related to small bowel contusion. Continue bowel rest and IV fluids. If not able to tolerate diet in the next couple of days, will need to place PICC line and start TPN as her small bowel heals. O/W continue current plan. Will start lovenox as Brilinta effects wearing off by this point. PPI for GI prophylaxis. Ambulate, IS. Pt does not want NG tube so will hold off on this for now. If N/V worsens then may need to place NG tube. 12/10/18 slow progress. Mechanism of injury is a bit unusual though pt again confirms no prior GI s/s prior to her fall. Will repeat ABD CT scan today. Cont bowel rest. 12/11/18: ABD CT yesterday showed improved small bowel edema, no free air or increased free fluid. Small bowel edema etiology indeterminate - trauma vs inflammation vs infectious. Will cont bowel rest until improved bowel function. Will order Dulcolax supp this am. (2) Contusion of small intestine Status: Acute Assessment & Plan: See above (3) Ileus Status: Acute Assessment & Plan: Ileus related to small bowel contusion. Bowel rest and IV fluids until resolution. (4) Insulin-requiring or dependent type II diabetes mellitus Status: Chronic Assessment & Plan: Will ask the hospitalist to comanage this problem. Will start insulin sliding scale. We will restart her home medications when she is able to eat. (5) CAD S/P percutaneous coronary angioplasty Status: Chronic Assessment & Plan: Will hold off on her Brilinta or now until the chance of needing surgery goes away. Its effects will be therapeutic for the next couple of days. Time Spent: > 30 min Exam Sepsis Risk: No Definite Risk Problem Qualifiers (1) Fall from slip, trip, or stumble: Encounter type: initial encounter Qualified Codes: W01.0XXA - Fall on same level from slipping, tripping and stumbling without subsequent striking against object, initial encounter (2) Contusion of small intestine: Encounter type: initial encounter Qualified Codes: S36.429A - Contusion of unspecified part of small intestine, initial encounter SHELDON TARANGO MD Dec 11, 2018 07:41
[2018-12-11] MEDS: PANTOPRAZOLE SOD 40 MG IV VIAL IVP SCH (10:15)
[2018-12-11] MEDS: ENOXAPARIN 40 MG/0.4ML SYR SC SCH (10:16)
[2018-12-11] MEDS: BISACODYL 10 MG SUPP PR SCH (10:18)
--- NOTE | 2018-12-11 15:56 | Hospitalist Progress Note ---
Subjective Progress Notes Subjective Feeling a bit better. Has passed flatus this am. Physical Exam Vital Signs Date Time Temp Pulse Resp B/P (MAP) Pulse Ox O2 Delivery O2 Flow Rate FiO2 12/11/18 15:04 97.9 59 188/83 (118) 95 Nasal Cannula 2.0 12/11/18 12:25 16 Intake and Output 12/11/18 07:01 Intake Total 100 ml Balance 100 ml Intake Oral 100 ml # Voids 2 General Appearance: Alert, Awake, No Acute Distress Cardiovascular: Regular Rate and Rhythm Respiratory: Clear to Auscultation GI: Soft and Non-Tender (BS+) Extremities: Warm, Perfused Psych: Appropriate Mood & Affect Result Diagram: 12/10/1852912/10/18529 Monitor Interpretation: Normal Sinus Rhythm Assessment and Plan Problems: (1) Insulin-requiring or dependent type II diabetes mellitus Status: Chronic Assessment & Plan: She is chronically on metformin and an insulin pump. The metformin is on hold as she is NPO. Her pump is also on hold. She is on sliding scale level #2. (2) History of coronary artery disease Status: Chronic Assessment & Plan: She has had multiple coronary stents over the last 10 years, with the last stent placement in June of 2017. She is chronically on ASA, Brilinta, Coreg, Atorvastatin, Zetia and Isosorbide. All are being held while NPO. Will restart once she is on clears. (3) CHF (congestive heart failure) Status: Chronic Assessment & Plan: She doesn't know her EF and we don't have her a copy last echocardiogram. Our last echo is from 2010 and she had a preserved EF. She is on chronic Coreg, Hydralazine, Isosorbide, and prn Lasix. Her weight is currently stable. Time Spent on Plan of Care: < 30 min Exam Sepsis Risk: No Definite Risk GHASSAN CARDOZA MD Dec 11, 2018 15:56
[2018-12-11] MEDS ORDERED: ENALAPRILAT 1.25 MG/ML VIAL IVP ONE (21:50)
[2018-12-12] VITALS (8 sets, daily range): BP systolic 132–186; BP diastolic 55–89
[2018-12-12] MEDS: METOPROLOL TART 5 MG/5 ML VIAL IVP SCH ×5 (03:21→18:51)
[2018-12-12] MEDS: ONDANSETRON 4 MG/2 ML VIAL IVP PRN (03:22)
[2018-12-12] MEDS: MORPHINE 2 MG/ML SYR IVP PRN (03:23)
[2018-12-12] MEDS: ACETAMINOPHEN(*)1000 MG/100 ML 100 ML IVPB PRN (03:23)
[2018-12-12 05:45] LABS: PLATELET COUNT, AUTOMATED 188 K/uL (150-450)
[2018-12-12] MEDS: NS(*) 0.9% 1000 ML BAG 1,000 ML IV PRN (05:53)
--- NOTE | 2018-12-12 08:50 | Hospitalist Progress Note ---
Subjective Progress Notes Subjective This patient was admitted for an ileus. She had no acute changes overnight. Patient Complains of: Cardiovascular: No: Chest Pain Respiratory: No: Shortness of Breath Physical Exam Vital Signs Date Time Temp Pulse Resp B/P (MAP) Pulse Ox O2 Delivery O2 Flow Rate FiO2 12/12/18 06:58 98.1 20 168/82 (110) Nasal Cannula 3.0 12/12/18 06:25 62 92 Intake and Output 12/12/18 07:01 Intake Total 2100 ml Balance 2100 ml IV Total 2100 ml # Voids 4 Cardiovascular: Regular Rate and Rhythm Respiratory: Clear to Auscultation Result Diagram: 12/12/1852512/12/18525 Monitor Interpretation: Normal Sinus Rhythm Assessment and Plan Problems: (1) Insulin-requiring or dependent type II diabetes mellitus Status: Chronic Assessment & Plan: She is chronically on metformin and an insulin pump. The metformin is on hold as she is NPO. Her pump is also on hold. She is on sliding scale level #2. (2) History of coronary artery disease Status: Chronic Assessment & Plan: She has had multiple coronary stents over the last 10 years, with the last stent placement in June of 2017. She is chronically on ASA, Brilinta, Coreg, Atorvastatin, Zetia and Isosorbide. All are being held while NPO. Will restart once she is on clears. (3) CHF (congestive heart failure) Status: Chronic Assessment & Plan: She doesn't know her EF and we don't have her a copy last echocardiogram. Our last echo is from 2010 and she had a preserved EF. She is on chronic Coreg, Hydralazine, Isosorbide, and prn Lasix. Her weight is currently stable. Exam Sepsis Risk: No Definite Risk NICOLETTE KYLE DO Dec 12, 2018 08:50
--- NOTE | 2018-12-12 09:35 | General Surgery Progress Note ---
Subjective Progress Notes Subjective feels a little better. + flatus X1. Physical Exam Vital Signs Date Time Temp Pulse Resp B/P (MAP) Pulse Ox O2 Delivery O2 Flow Rate FiO2 12/12/18 06:58 98.1 20 168/82 (110) Nasal Cannula 3.0 12/12/18 06:25 62 92 Intake and Output 12/12/18 07:01 Intake Total 2100 ml Balance 2100 ml IV Total 2100 ml # Voids 4 General Appearance: Alert, Awake, No Acute Distress, Afebrile Cardiovascular: Normal Rhythm & Peripheral Pulses Respiratory: No Respiratory Distress, Clear to Auscultation GI: Soft and Non-Tender, Other (no peritoneal signs) Musculoskeletal: No Weakness/Pain Integumentary: Skin Intact without Lesion / Mass Psych: Alert & Oriented X3, Appropriate Mood & Affect Result Diagram: 12/12/1852512/12/18525 Monitor Interpretation: Normal Sinus Rhythm Assessment and Plan Problems: (1) Fall from slip, trip, or stumble Status: Acute Assessment & Plan: 12/07/18: Is certainly suspicious for a small bowel contusion. It has been 12 hours since her fall and there is no free air so I doubt there is any perforation. I have recommended that she be admitted to the hospital for observation and pain control. She is certainly at risk for perforation but she had no direct contact with her abdomen, her viscera were jostled around in her fall and this likely resulted in the contusion. We'll follow her vital signs, physical exam, and labs closely. If she appears to be clinically worsening then we will either proceed with surgery or repeat imaging with another CT scan of her abdomen. We'll ask the hospitalist to consult on this patient to help comanage her comorbidities. We'll use PPI therapy for GI prophylaxis. We'll hold off on Lovenox for now since she is still under the effect of her antiplatelet regimen. I have explained this plan to her in great detail and she seems to understand and seems agreeable with this plan. 12/08/18: Seems to be doing well. No fevers or tachycardia. WBC coming down. H/H stable. Abdominal exam is benign. Will continue bowel rest and this afternoon will start clear diet if she continues to do well. Continue blood sugar control with SSI and will restart basal rate via insulin pump when diet started. Change IV pain control to Morphine from dilaudid. PPI for GI prophylaxis. Hold on blood thinners. She's still anticoagulated from Brilinta, last dose was yesterday. Ambulate, IS, etc today. 12/09/18: Doing well. Afebrile, VSS, labs all look OK. Still with ileus related to small bowel contusion. Continue bowel rest and IV fluids. If not able to tolerate diet in the next couple of days, will need to place PICC line and start TPN as her small bowel heals. O/W continue current plan. Will start lovenox as Brilinta effects wearing off by this point. PPI for GI prophylaxis. Ambulate, IS. Pt does not want NG tube so will hold off on this for now. If N/V worsens then may need to place NG tube. 12/10/18 slow progress. Mechanism of injury is a bit unusual though pt again confirms no prior GI s/s prior to her fall. Will repeat ABD CT scan today. Cont bowel rest. 12/11/18: ABD CT yesterday showed improved small bowel edema, no free air or increased free fluid. Small bowel edema etiology indeterminate - trauma vs inflammation vs infectious. Will cont bowel rest until improved bowel function. Will order Dulcolax supp this am. 12/12/18: clinically improved. Start clear liquids, avoid carbonated beverages. Hold on TPN at this point. (2) Contusion of small intestine Status: Acute Assessment & Plan: See above (3) Ileus Status: Acute Assessment & Plan: Ileus related to small bowel contusion. Bowel rest and IV fluids until resolution. see care plan above. (4) Insulin-requiring or dependent type II diabetes mellitus Status: Chronic Assessment & Plan: Will ask the hospitalist to comanage this problem. Will start insulin sliding scale. We will restart her home medications when she is able to eat. (5) CAD S/P percutaneous coronary angioplasty Status: Chronic Assessment & Plan: Will hold off on her Brilinta or now until the chance of needing surgery goes away. Its effects will be therapeutic for the next couple of days. Central Venous Access Medical Necessity for Access: IV Access Time Spent: > 30 min Exam Sepsis Risk: No Definite Risk Problem Qualifiers (1) Fall from slip, trip, or stumble: Encounter type: initial encounter Qualified Codes: W01.0XXA - Fall on same level from slipping, tripping and stumbling without subsequent striking against object, initial encounter (2) Contusion of small intestine: Encounter type: initial encounter Qualified Codes: S36.429A - Contusion of unspecified part of small intestine, initial encounter SHELDON TARANGO MD Dec 12, 2018 09:35
[2018-12-12] MEDS: PANTOPRAZOLE SOD 40 MG IV VIAL IVP SCH (10:17)
[2018-12-12] MEDS: ENOXAPARIN 40 MG/0.4ML SYR SC SCH (10:17)
[2018-12-12] MEDS: BISACODYL 10 MG SUPP PR SCH (10:48)
[2018-12-12] MEDS: INSULIN HUM LISPRO 100 UN/ML 3 ML VIAL SUBQ PRN (21:05)
[2018-12-12] MEDS: hydrALAZINE HCL 25 MG TAB PO SCH (21:06)
[2018-12-12] MEDS: CARVEDILOL 25 MG TABLET PO SCH (21:06)
[2018-12-12] MEDS: TICAGRELOR 90 MG TABLET PO SCH (21:06)
[2018-12-13 04:23] VITALS: BP 172/88
[2018-12-13 07:11] VITALS: BP 167/90
[2018-12-13] MEDS: INSULIN HUM LISPRO 100 UN/ML 3 ML VIAL SUBQ PRN ×2 (08:02→12:14)
--- NOTE | 2018-12-13 08:54 | General Surgery Progress Note ---
Subjective Progress Notes Subjective doing well. +bm. no vomiting. desire food. Physical Exam Vital Signs Date Time Temp Pulse Resp B/P (MAP) Pulse Ox O2 Delivery O2 Flow Rate FiO2 12/13/18 07:11 97.9 62 20 167/90 (115) 96 Nasal Cannula 3.0 Intake and Output 12/13/18 07:01 Intake Total 1841 ml Balance 1841 ml Intake Oral 940 ml IV Total 901 ml # Voids 6 # Bowel Movements 5 General Appearance: No Acute Distress Cardiovascular: Other (reg rate) GI: Other (abd soft) Result Diagram: 12/12/1852512/12/18525 Monitor Interpretation: Normal Sinus Rhythm Assessment and Plan Problems: (1) Fall from slip, trip, or stumble Status: Acute Assessment & Plan: 12/07/18: Is certainly suspicious for a small bowel contusion. It has been 12 hours since her fall and there is no free air so I doubt there is any perforation. I have recommended that she be admitted to the hospital for observation and pain control. She is certainly at risk for perforation but she had no direct contact with her abdomen, her viscera were jostled around in her fall and this likely resulted in the contusion. We'll follow her vital signs, physical exam, and labs closely. If she appears to be clinically worsening then we will either proceed with surgery or repeat imaging with another CT scan of her abdomen. We'll ask the hospitalist to consult on this patient to help comanage her comorbidities. We'll use PPI therapy for GI prophylaxis. We'll hold off on Lovenox for now since she is still under the effe ct of her antiplatelet regimen. I have explained this plan to her in great detail and she seems to understand and seems agreeable with this plan. 12/08/18: Seems to be doing well. No fevers or tachycardia. WBC coming down. H/H stable. Abdominal exam is benign. Will continue bowel rest and this afternoon will start clear diet if she continues to do well. Continue blood sugar control with SSI and will restart basal rate via insulin pump when diet started. Change IV pain control to Morphine from dilaudid. PPI for GI prophylaxis. Hold on blood thinners. She's still anticoagulated from Brilinta, last dose was yesterday. Ambulate, IS, etc today. 12/09/18: Doing well. Afebrile, VSS, labs all look OK. Still with ileus related to small bowel contusion. Continue bowel rest and IV fluids. If not able to tolerate diet in the next couple of days, will need to place PICC line and start TPN as her small bowel heals. O/W continue current plan. Will start lovenox as Brilinta effects wearing off by this point. PPI for GI prophylaxis. Ambulate, IS. Pt does not want NG tube so will hold off on this for now. If N/V worsens then may need to place NG tube. 12/10/18 slow progress. Mechanism of injury is a bit unusual though pt again confirms no prior GI s/s prior to her fall. Will repeat ABD CT scan today. Cont bowel rest. 12/11/18: ABD CT yesterday showed improved small bowel edema, no free air or increased free fluid. Small bowel edema etiology indeterminate - trauma vs i nflammation vs infectious. Will cont bowel rest until improved bowel function. Will order Dulcolax supp this am. 12/12/18: clinically improved. Start clear liquids, avoid carbonated beverages. Hold on TPN at this point. 12/13/18: doing well. diet as desire. home today. (2) Contusion of small intestine Status: Acute Assessment & Plan: See above (3) Ileus Status: Acute Assessment & Plan: Ileus related to small bowel contusion. Bowel rest and IV fluids until resolution. see care plan above. (4) Insulin-requiring or dependent type II diabetes mellitus Status: Chronic Assessment & Plan: Will ask the hospitalist to comanage this problem. Will start insulin sliding scale. We will restart her home medications when she is able to eat. (5) CAD S/P percutaneous coronary angioplasty Status: Chronic Assessment & Plan: Will hold off on her Brilinta or now until the chance of needing surgery goes away. Its effects will be therapeutic for the next couple of days. Central Venous Access Medical Necessity for Access: IV Access Exam Sepsis Risk: No Definite Risk Problem Qualifiers (1) Fall from slip, trip, or stumble: Encounter type: initial encounter Qualified Codes: W01.0XXA - Fall on same level from slipping, tripping and stumbling without subsequent striking against object, initial encounter (2) Contusion of small intestine: Encounter type: initial encounter Qualified Codes: S36.429A - Contusion of unspecified part of small intestine, initial encounter MAX MEDELLIN Dec 13, 2018 08:54
[2018-12-13] MEDS ORDERED: PANTOPRAZOLE SOD 20 MG TABEC PO SCH (09:00)
[2018-12-13] MEDS ORDERED: LISINOPRIL 20 MG TAB PO SCH (09:00)
[2018-12-13] MEDS ORDERED: amLODIPine BESYL(*) 5 MG TAB PO SCH (09:00)
[2018-12-13] MEDS ORDERED: ASPIRIN 81 MG CHEW PO SCH (09:00)
[2018-12-13] MEDS: CARVEDILOL 25 MG TABLET PO SCH (09:15)
[2018-12-13] MEDS: hydrALAZINE HCL 25 MG TAB PO SCH (09:15)
[2018-12-13] MEDS: TICAGRELOR 90 MG TABLET PO SCH (09:15)
[2018-12-13] MEDS: ENOXAPARIN 40 MG/0.4ML SYR SC SCH (09:18)
[2018-12-13] MEDS: BISACODYL 10 MG SUPP PR SCH (10:00)
--- NOTE | 2018-12-13 10:17 | Hospitalist Progress Note ---
Subjective Progress Notes Subjective No concerns from the patient or staff. Physical Exam Vital Signs Date Time Temp Pulse Resp B/P (MAP) Pulse Ox O2 Delivery O2 Flow Rate FiO2 12/13/18 07:11 97.9 62 20 167/90 (115) 96 Nasal Cannula 3.0 Intake and Output 12/13/18 07:01 Intake Total 1841 ml Balance 1841 ml Intake Oral 940 ml IV Total 901 ml # Voids 6 # Bowel Movements 5 General Appearance: Alert, Awake, No Acute Distress Result Diagram: 12/12/1852512/12/18525 Monitor Interpretation: Normal Sinus Rhythm Assessment and Plan Problems: (1) Insulin-requiring or dependent type II diabetes mellitus Status: Chronic Assessment & Plan: She is chronically on metformin and an insulin pump. The metformin to be restarted tomorrow. Her pump to restart today, if she goes home. (2) History of coronary artery disease Status: Chronic Assessment & Plan: She has had multiple coronary stents over the last 10 years, with the last stent placement in June of 2017. She is chronically on ASA, Brilinta, Coreg, Atorvastatin, Zetia and Isosorbide. All have been restarted except the Atorvastatin and Isosorbide, but can be restarted upon discharge. (3) CHF (congestive heart failure) Status: Chronic Assessment & Plan: She doesn't know her EF and we don't have her a copy last echocardiogram. Our last echo is from 2010 and she had a preserved EF. She is on chronic Coreg, Hydralazine, Isosorbide, and prn Lasix. Her weight is currently stable. Central Venous Access Medical Necessity for Access: IV Access Exam Sepsis Risk: No Definite Risk LESLYE SMITH MD Dec 13, 2018 10:17
[2018-12-13 11:25] VITALS: BP 179/82
[2018-12-13] MEDS ORDERED: TRAM-420 PO (12:45)
--- NOTE | 2018-12-13 12:46 | Hospitalist Depart ---
Discharge Summary Reason for Hosp/Final Diag: (1) Fall from slip, trip, or stumble Status: Acute Hospital Course & Plan: 12/07/18: Is certainly suspicious for a small bowel contusion. It has been 12 hours since her fall and there is no free air so I doubt there is any perforation. I have recommended that she be admitted to the hospital for observation and pain control. She is certainly at risk for perforation but she had no direct contact with her abdomen, her viscera were jostled around in her fall and this likely resulted in the contusion. We'll follow her vital signs, physical exam, and labs closely. If she appears to be clinically worsening then we will either proceed with surgery or repeat imaging with another CT scan of her abdomen. We'll ask the hospitalist to consult on this patient to help comanage her comorbidities. We'll use PPI therapy for GI prophylaxis. We'll hold off on Lovenox for now since she is still under the effect of her antiplatelet regimen. I have explained this plan to her in great detail and she seems to understand and seems agreeable with this plan. 12/08/18: Seems to be doing well. No fevers or tachycardia. WBC coming down. H/H stable. Abdominal exam is benign. Will continue bowel rest and this afternoon will start clear diet if she continues to do well. Continue blood sugar control with SSI and will restart basal rate via insulin pump when diet started. Change IV pain control to Morphine from dilaudid. PPI for GI prophylaxis. Hold on blood thinners. She's still anticoagulated from Brilinta, last dose was yesterday. Ambulate, IS, etc today. 12/09/18: Doing well. Afebrile, VSS, labs all look OK. Still with ileus related to small bowel contusion. Continue bowel rest and IV fluids. If not able to tolerate diet in the next couple of days, will need to place PICC line and start TPN as her small bowel heals. O/W continue current plan. Will start lovenox as Brilinta effects wearing off by this point. PPI for GI prophylaxis. Ambulate, IS. Pt does not want NG tube so will hold off on this for now. If N/V worsens then may need to place NG tube. 12/10/18 slow progress. Mechanism of injury is a bit unusual though pt again confirms no prior GI s/s prior to her fall. Will repeat ABD CT scan today. Cont bowel rest. 12/11/18: ABD CT yesterday showed improved small bowel edema, no free air or increased free fluid. Small bowel edema etiology indeterminate - trauma vs inflammation vs infectious. Will cont bowel rest until improved bowel function. Will order Dulcolax supp this am. 12/12/18: clinically improved. Start clear liquids, avoid carbonated beverages. Hold on TPN at this point. 12/13/18: doing well. diet as desire. home today. (2) Contusion of small intestine Status: Acute Hospital Course & Plan: See above (3) Ileus Status: Acute Hospital Course & Plan: Ileus related to small bowel contusion. Bowel rest and IV fluids until resolution. see care plan above. (4) Insulin-requiring or dependent type II diabetes mellitus Status: Chronic Hospital Course & Plan: Will ask the hospitalist to comanage this problem. Will start insulin sliding scale. We will restart her home medications when she is able to eat. (5) CAD S/P percutaneous coronary angioplasty Status: Chronic Hospital Course & Plan: Will hold off on her Brilinta or now until the chance of needing surgery goes away. Its effects will be therapeutic for the next couple of days. Departure Weight (Pounds): 185 Weight (Ounces): 3.0 Result Diagram: 12/12/1852512/12/18525 Condition: Improved Discharge: Home Discharge Instructions Home Meds Active Scripts Tramadol Hcl (TRAMADOL HCL) 50 Mg Tablet, 50 MG PO Q6H PRN for PAIN, #14 TAB Prov:MAX MEDELLIN 12/13/18 Reported Medications Furosemide (FUROSEMIDE) 20 Mg Tablet, 2 TAB PO DAILY, TAB Edema 12/08/18 Hydralazine Hcl (HYDRALAZINE HCL) 25 Mg Tablet, 25 MG PO BID, TAB 12/07/18 Ezetimibe (ZETIA) 10 Mg Tablet, 10 MG PO QDAY, TAB 12/07/18 Carvedilol (CARVEDILOL) Unknown Strength Tab, PO BID, TAB 12/07/18 Isosorbide Mononitrate (ISOSORBIDE MONONITRATE ER) 60 Mg Tab.er.24h, 60 MG PO DAILY 12/07/18 Atorvastatin Calcium (LIPITOR) 40 Mg Tablet, 2 TAB PO QDAY, TAB 12/07/18 Lisinopril (LISINOPRIL) 40 Mg Tablet, 40 MG PO QDAY, TAB 12/07/18 Insulin Aspart (NOVOLOG) Unknown Strength Soln, SUBQ 07/01/18 Albuterol Sulfate (VENTOLIN HFA) 18 Gm Inh, 1-2 PUFF INH 3-4XD, INH 07/01/18 Nitroglycerin (NITROGLYCERIN) 0.4 Mg Tab.subl, 0.4 MG SL Q5MIN 07/23/17 Amlodipine Besylate (AMLODIPINE BESYLATE) 10 Mg Tablet, 1 TAB PO QDAY, TAB 07/23/17 Cholecalciferol (Vitamin D3) (VITAMIN D3) 5,000 Unit Capsule, 1 CAP PO DAILY, CAPSULE 12/16/15 Ticagrelor (BRILINTA) 90 Mg Tablet, 1 TAB PO BID 12/11/15 Metformin Hcl (METFORMIN HCL) 1,000 Mg Tablet, 1 TAB PO BID TAKE ONE TABLET BY MOUTH EVERY DAY 01/23/14 Aspirin (ASPIRIN) 81 Mg Tab.chew, 81 MG PO QDAY, TAB.CHEW TAKE 1 TABLET BY MOUTH EVERY DAY 09/27/13 Discontinued Reported Medications Benzonatate 100 Mg Cap (TESSALON PERLE 100 MG CAP) 100 Mg Capsule, 100 MG PO TID, #15 CAP 10/09/17 Carvedilol (CARVEDILOL) 25 Mg Tablet, 25 MG PO BID, #10 TAB 07/23/17 Discontinued Scripts Furosemide (FUROSEMIDE) 20 Mg Tablet, 2 TAB PO DAILY PRN for edema, #0 TAB Prov:LESLYE SMITH MD 12/07/18 Prednisone (PREDNISONE) 20 Mg Tablet, 20 MG PO QDAY for 6 Days, #18 TAB Prov:TIA HARRIS DO 07/01/18 Valacyclovir Hcl (VALACYCLOVIR) 1,000 Mg Tablet, 1000 MG PO TID for 7 Days, #21 TAB Prov:TIA HARRIS DO 07/01/18 Diet: Regular Activity: As Tolerated Special Instructions: f/u dr. tobin in 2 wks Venous Thromboembolism Antithrombotics Is Pt On Any Antithrombotics?: No Problem Qualifiers (1) Fall from slip, trip, or stumble: Encounter type: initial encounter Qualified Codes: W01.0XXA - Fall on same level from slipping, tripping and stumbling without subsequent striking against object, initial encounter (2) Contusion of small intestine: Encounter type: initial encounter Qualified Codes: S36.429A - Contusion of unspecified part of small intestine, initial encounter MAX MEDELLIN Dec 13, 2018 12:46
== END 2018-12-13 15:40 | disposition home or self-care (01) | DRG 394 ==
LOC: ER 15:26 → INTOOBSV 20:11 → MED 20:11 → OBSVTOIN 20:11
PROVIDERS: ADMIT Surgery; ATTEND Surgery
DX: S36.429A Contusion of unspecified part of small intestine, initial encounter (principal); K50.90 Crohn's disease, unspecified, without complications; I25.10 Atherosclerotic heart disease of native coronary artery without angina pectoris; E11.649 Type 2 diabetes mellitus with hypoglycemia without coma; I11.0 Hypertensive heart disease with heart failure; E78.00 Pure hypercholesterolemia, unspecified; G47.30 Sleep apnea, unspecified; K21.9 Gastro-esophageal reflux disease without esophagitis; E55.9 Vitamin D deficiency, unspecified; I50.9 Heart failure, unspecified; W01.0XXA Fall on same level from slipping, tripping and stumbling without subsequent striking against object, initial encounter; Z95.5 Presence of coronary angioplasty implant and graft; I25.2 Old myocardial infarction; Z99.81 Dependence on supplemental oxygen; Z90.710 Acquired absence of both cervix and uterus; Z79.4 Long term (current) use of insulin; Z96.41 Presence of insulin pump (external) (internal); Z88.7 Allergy status to serum and vaccine; Z88.8 Allergy status to other drugs, medicaments and biological substances
CPT/HCPCS: 36415; 36416; 70450; 71260; 72125; 74177; 74178; 82040; 82247; 82310; 82374; 82435; 82565; 82947; 82948; 83605; 83690; 84075; 84132; 84155; 84295; 84450; 84460; 84520; 85025; 86140; 96361; 96372; 96374; 96375; 99285; C9113; J0131; J1170; J1650; J2270; J2405; J3490; J7030; Q9967

== ENCOUNTER 2019-01-02 11:55 | Emergency (ER) | payer BC, OTHER ==
[2014-02-01 16:17] VITALS: Wt 84.0 kg
[~2019-01-02 11:55] MED LIST changes: +CAR3.125 PO; +EZET10TA41 PO; +HYDR25TA66 PO; +ISOS60TA42 PO
[2019-01-02] MEDS ORDERED: NS(*) 0.9% 1000 ML BAG 1,000 ML IV ONE ×2 (12:05)
[2019-01-02] MEDS ORDERED: ONDANSETRON 4 MG/2 ML VIAL IVP ONE ×2 (12:05→13:50)
--- NOTE | 2019-01-02 12:09 | ER Report ---
History and Physical Time Seen By MD: 12:05 Hx. of Stated Complaint: VOMITING/DIARRHEA X 2 DAYS HPI/ROS CHIEF COMPLAINT: Vomiting HISTORY OF PRESENT ILLNESS: Patient is a 58 erythema comes emergency Department with a complaint of vomiting and diarrhea last 24 hours. Patient states that she's not been widening down. Patient states has been clear nonbloody nonbilious vomiting and non-both bloody nonbilious emesis. Mild abdominal cramping associated with that she has recent diagnosis of an ileus but a week and half ago smoker general surgeon recommended follow-up CT scan today. Patient has no chest pain shortness of breath nausea and no fever or chills REVIEW OF SYSTEMS: Respiratory: No cough, no dyspnea. Cardiovascular: No chest pain, no palpitations. Gastrointestinal: Vomiting diarrhea no abdominal pain Musculoskeletal: No back pain. Remainder of the 14 system rev: Yes Allergies: Coded Allergies: Tetanus Vaccines and Toxoid (Verified Allergy, Severe, ANAPHYLAXIS, 01/02/19) barium iodide (Verified Allergy, Intermediate, PROJECTILE VOMITING HIVES, 01/02/19) Home Meds Active Scripts Tramadol Hcl (TRAMADOL HCL) 50 Mg Tablet, 50 MG PO Q6H PRN for PAIN, #14 TAB Prov:MAX MEDELLIN Neena 12/13/18 Reported Medications Furosemide (FUROSEMIDE) 20 Mg Tablet, 2 TAB PO DAILY, TAB Edema 12/08/18 Hydralazine Hcl (HYDRALAZINE HCL) 25 Mg Tablet, 25 MG PO BID, TAB 12/07/18 Ezetimibe (ZETIA) 10 Mg Tablet, 10 MG PO QDAY, TAB 12/07/18 Carvedilol (CARVEDILOL) Unknown Strength Tab, PO BID, TAB 12/07/18 Isosorbide Mononitrate (ISOSORBIDE MONONITRATE ER) 60 Mg Tab.er.24h, 60 MG PO DAILY 12/07/18 Atorvastatin Calcium (LIPITOR) 40 Mg Tablet, 2 TAB PO QDAY, TAB 12/07/18 Lisinopril (LISINOPRIL) 40 Mg Tablet, 40 MG PO QDAY, TAB 12/07/18 Insulin Aspart (NOVOLOG) Unknown Strength Soln, SUBQ 07/01/18 Albuterol Sulfate (VENTOLIN HFA) 18 Gm Inh, 1-2 PUFF INH 3-4XD, INH 07/01/18 Nitroglycerin (NITROGLYCERIN) 0.4 Mg Tab.subl, 0.4 MG SL Q5MIN 07/23/17 Amlodipine Besylate (AMLODIPINE BESYLATE) 10 Mg Tablet, 1 TAB PO QDAY, TAB 07/23/17 Cholecalciferol (Vitamin D3) (VITAMIN D3) 5,000 Unit Capsule, 1 CAP PO DAILY, CAPSULE 12/16/15 Ticagrelor (BRILINTA) 90 Mg Tablet, 1 TAB PO BID 12/11/15 Metformin Hcl (METFORMIN HCL) 1,000 Mg Tablet, 1 TAB PO BID TAKE ONE TABLET BY MOUTH EVERY DAY 01/23/14 Aspirin (ASPIRIN) 81 Mg Tab.chew, 81 MG PO QDAY, TAB.CHEW TAKE 1 TABLET BY MOUTH EVERY DAY 09/27/13 Reviewed Nurses Notes: Yes Old Medical Records Reviewed: Yes Hx Smoking: No Smoking Status: Never Smoker Exposure to Second Hand Smoke?: No Hx Substance Use Disorder: No Hx Alcohol Use: No ("none") Constitutional Vital Sign - Last 24 Hours 01/02/19 01/02/19 01/02/19 01/02/19 12:00 12:02 12:15 12:30 Temp 97.8 Pulse 71 70 72 64 Resp 18 B/P (MAP) 198/108 163/88 (113) Pulse Ox 88 93 90 96 O2 Delivery Room Air 01/02/19 01/02/19 12:30 12:45 Pulse 78 Pulse Ox 95 O2 Flow Rate 1.0 Physical Exam General Appearance: The patient is alert, has no immediate need for airway protection and no current signs of toxicity. [ ] Eyes: Pupils equal and round no injection. Respiratory: Chest is non tender, lungs are clear to auscultation. Cardiac: regular rate and rhythm [ ] Gastrointestinal: Abdomen is soft and non tender, no masses, bowel sounds normal. Musculoskeletal: Neck: Neck is supple and non tender. Extremities have full range of motion and are non tender. Skin: No rashes or lesions. [ ] DIFFERENTIAL DIAGNOSIS: After history and physical exam differential diagnosis was considered for enteritis ileus small bowel obstruction colitis Medical Decision Making Data Points Result Diagram: 01/02/19 1215 01/02/19 1215 Laboratory Hematology Test 01/02/19 12:15 White Blood Count 5.3 k/uL (4.5-11.0) Red Blood Count 5.78 M/uL (4.17-5.56) H Hemoglobin 16.9 g/dL (12.0-16.0) H Hematocrit 49.5 % (34.0-47.0) H Mean Corpuscular Volume 85.6 fL (80.0-96.0) Mean Corpuscular Hemoglobin 29.2 pg (26.0-33.0) Mean Corpuscular Hemoglobin Concent 34.1 g/dL (32.0-36.0) Red Cell Distribution Width 14.9 % (11.5-14.5) H Platelet Count 183 K/uL (150-450) Mean Platelet Volume 9.6 fL (7.2-11.1) Neutrophils (%) (Auto) 52.6 % (39.4-72.5) Lymphocytes (%) (Auto) 32.6 % (17.6-49.6) Monocytes (%) (Auto) 11.0 % (4.1-12.4) Eosinophils (%) (Auto) 2.4 % (0.4-6.7) Basophils (%) (Auto) 1.4 % (0.3-1.4) Nucleated RBC Relative Count (auto) 0.1 /100WBC Neutrophils # (Auto) 2.8 K/uL (2.0-7.4) Lymphocytes # (Auto) 1.7 K/uL (1.3-3.6) Monocytes # (Auto) 0.6 K/uL (0.3-1.0) Eosinophils # (Auto) 0.1 K/uL (0.0-0.5) Basophils # (Auto) 0.1 K/uL (0.0-0.1) Nucleated RBC Absolute Count (auto) 0.00 K/uL Chemistry Test 01/02/19 12:15 Sodium Level 140 mmol/L (137-145) Potassium Level 3.5 mmol/L (3.5-5.0) Chloride Level 104 mmol/L (98-107) Carbon Dioxide Level 25 mmol/L (22-31) Blood Urea Nitrogen 14 mg/dl (7-18) Creatinine 0.60 mg/dl (0.52-1.04) Glomerular Filtration Rate Calc > 60.0 Random Glucose 106 mg/dl (75-110) Calcium Level 9.1 mg/dl (8.4-10.2) Total Bilirubin 1.3 mg/dl (0.2-1.3) Aspartate Amino Transf (AST/SGOT) 61 U/L (0-35) Alanine Aminotransferase (ALT/SGPT) 72 U/L (0-56) Alkaline Phosphatase 109 U/L (0-126) Total Protein 7.8 g/dl (6.3-8.2) Albumin 4.2 g/dl (3.5-5.0) Lipase 24 U/L (23-300) Urinalysis Test 01/02/19 12:50 Urine Color Ioana Urine Clarity Clear Urine pH 5.0 pH (4.8-9.5) Urine Specific [place] 1.026 Urine Protein Negative mg/dL (NEGATIVE) Urine Glucose (UA) Negative mg/dL (NEGATIVE) Urine Ketones Negative mg/dL (NEGATIVE) Urine Blood Negative (NEGATIVE) Urine Nitrite Negative (NEGATIVE) Urine Bilirubin Negative (NEGATIVE) Urine Urobilinogen 2.0 mg/dL (0.2-1.9) Urine Leukocyte Esterase Negative (NEGATIVE) Urine RBC <1 /HPF (0-2/HPF) Urine WBC 1 /HPF (0-5/HPF) Urine Squamous Epithelial Cells Many /LPF (</=FEW) Urine Transitional Epithelial Cells Few /LPF (NONE-FEW) Urine Bacteria Negative /HPF (NONE-FEW) Urine Mucus Few /HPF (NONE-FEW) ED Course/Re-evaluation ED Course ED course attending erythema comes in with multiple episodes of vomiting and diarrhea Baseline labs were within normal limits received 2 L of fluid she also received antiemetics she's feeling better CT scan due to prior to listen surgical procedures came back negative for any acute some mild free air but that is secondary to the surgical procedures no ileus no small bowel obstruction (ODT Zofran slow [place] next couple days and follow-up with Gen. surgery Decision to Disposition Date: Jan 02, 2019 Decision to Disposition Time: 14:05 Depart Departure Latest Vital Signs Vital Signs Date Time Temp Pulse Resp B/P (MAP) Pulse Ox O2 Delivery O2 Flow Rate FiO2 01/02/19 12:45 78 95 01/02/19 12:30 1.0 01/02/19 12:30 163/88 (113) 01/02/19 12:02 97.8 18 Room Air Impression: Primary Impression: Gastroenteritis Condition: Improved Disposition: HOME OR SELF-CARE Referrals: [facility] (PCP) 5 Days New Scripts Ondansetron 4 Mg Odt (ONDANSETRON 4 MG ODT) 4 Mg Tab.rapdis 4 MG PO ONCE for Nausea, #10 TAB Prov: TISH HUTTON MD 01/02/19 Patient Instructions: Gastroenteritis (DC) TISH HUTTON MD Jan 02, 2019 12:09
[2019-01-02 12:25] LABS: PLATELET COUNT, AUTOMATED 183 K/uL (150-450)
[2019-01-02 13:30] VITALS: BP 168/74
[2019-01-02] MEDS ORDERED: ONDA4TAB9 PO (14:09)
--- NOTE | 2019-01-02 14:09 | RADIOLOGY IMAGING REPORT ---
FACILITY: [facility] PATIENT NAME: Genna Morrell : 1960 MR: [id number] V: [id number] EXAM DATE: ORDERING PHYSICIAN: TISH HUTTON TECHNOLOGIST: Location: [facility] - [place], [place] Patient: Genna Morrell : 1960 Visit/Account:[id number] Date of Sevice: 01/02/2019 CT ABDOMEN PELVIS W/ CON HISTORY: vomiting ro illius TECHNIQUE: CT abdomen and pelvis with intravenous contrast. One of the following dose optimization techniques was utilized in the performance of this exam: Autom ated exposure control; adjustment of the mA and/or kV according to the patient's size; or use of an i terative reconstruction technique. Specific details can be referenced in the facility's radiology C T exam operational policy. CONTRAST: 75 mL [id number]. COMPARISON: None. FINDINGS: Visualized lung bases: 3 mm pleural-based nodule within the right lower lobe which is unchanged sinc e at least July 01, 2018, almost certainly benign given appearance and stability. Mild nonspecifi c circumferential wall thickening of the distal esophagus, unchanged. Hepatobiliary: Gallbladder surgically absent. Otherwise negative. Spleen: Negative. Adrenals: Negative. Pancreas: Negative. Kidneys/: Uterus is surgically absent. Otherwise negative. GI: Postsurgical changes within the distal colon without visualized complication. Additional postsur gical changes within a loop of small bowel in the midabdomen without visualized complication. No evid ence for small bowel obstruction . No wall thickening. Mild/moderate distal colonic diverticulosis wi thout evidence for diverticulitis. Vessels/spaces/nodes: Small volume free air along the ventral abdominal wall. Mild atherosclerosis. No lymphadenopathy. Multiple small mesenteric lymph nodes which appear slightly increased in size, li allan reactive. Bones/soft tissues: Postsurgical changes from ventral abdominal wall hernia repair. No significant r esidual/recurrent hernia. No acute osseous abnormality. IMPRESSION: 1. No acute findings. No evidence for ileus or obstruction. 2. Small volume free air along the ventral abdominal wall, likely within normal limits for recent davin gical procedure. 3. Additional incidental/chronic findings, as above. Report Dictated By: Surendra Hernandez MD at 01/02/2019 1:52 PM Report E-Signed By: Surendra Hernandez MD at 01/02/2019 2:01 PM WSN:[id number]
== END 2019-01-02 14:19 | disposition home or self-care (01) ==
LOC: ER 12:03
DX: K52.9 Noninfective gastroenteritis and colitis, unspecified (principal)
CPT/HCPCS: 74177; 81001; 83690; 85025; 96361; 96374; 96376; 99284; J2405; J7030; Q9967; 82040; 82247; 82310; 82374; 82435; 82565; 82947; 84075; 84132; 84155; 84295; 84450; 84460; 84520